=== PATIENT | female | born 1980 | race Caucasian/White ===

== ENCOUNTER 2022-05-24 09:45 | Emergency (ER) | payer BC, SELFPAY ==
[2022-05-24 09:57] VITALS: BP 138/90; PULSE 118; RESP 14; TEMP 36.7; O2SAT 100; BMI 17.0
--- NOTE | 2022-05-24 10:35 | CRLHL7_ITS ---
For Patients: As a result of the Century Cures Act, medical imaging exams and procedure reports are released immediately into your electronic medical record. You may view this report before your referring provider. If you have questions, please contact your health care provider. INDICATION: Low back pain with right lower extremity radiculopathy TECHNIQUE: Four views of the lumbar spine were obtained including oblique views as well as AP and lateral views. COMPARISON: None FINDINGS: No fracture, significant subluxation or acute abnormality is evident. No appreciable spondylosis changes are seen as the vertebral body heights and intervertebral disc space heights are well maintained. Minimal scoliotic curvature of the lumbar spine is noted convex right and likely is positional. IMPRESSION: Minimal scoliotic curvature of the lumbar spine is noted convex right without other abnormality as detailed above. Specifically, no etiology for patient`s right lower extremity radiculopathy is seen. MRI of the lumbar spine could be obtained for further assessment. Dictated by Roney Barker MD @ 05/24/2022 11:48:43 AM (Electronically Signed)
[2022-05-24 11:04] VITALS: BP 128/83; RESP 14; O2SAT 100
--- NOTE | 2022-05-24 11:30 | ED_ITS ---
HPI - General Adult General Time Seen by Provider: 11:30 Date Seen: 05/24/22 Chief complaint: Unspecified Complaint, Adult Stated complaint: Digestive trouble Time Seen by Provider: 05/24/22 10:14 Source: patient and old records reviewed Mode of arrival: ambulatory Limitations: no limitations History of Present Illness HPI narrative: Patient is a very pleasant 41-year-old female with history of low back pain who comes to the emergency room with worries about low back pain and recent weight loss. Patient had been talking to the nurse line and nurse line suggested she come in for evaluation. Patient is worried that on L5 disc problem may be causing some of her abdominal discomfort. Patient states that she has had low back pain for a couple of years after injury. She has never had any x-rays but had been seen by a chiropractor who would often do adjustments. She states she really has not had any improvement. She notes that she has occasional tingling going down from her buttock down to her leg and even into her heel. She states that this is especially worse after working. 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 She notes no loss of bowel or bladder control. Today on her way here she also fell down landing on her left arm. She states that she has pain into her left shoulder. She does not think her wrist was hurt and is able to move it without difficulty. Patient also notes that she has been experiencing soft stools lately. There is no blood in the stools. She states she tried an elimination diet and has found that white vinegar and things such as corn and dairy bother her greatly. She notes that sometime she has really significant pain especially in the lower abdomen and right lower quadrant after ingesting certain foods. She will then not have a bowel movement for 3 days but when she does it will be straight diarrhea. She does not think she develops any rash from any specific foods. She has never had a colonoscopy. No recent fever. She has not had any vomiting. In regards to her weight loss she estimates this to be about 11 lb since December. She notes that she had not been eating very healthy in was in taking high calorie foods. She switched back to healthy foods including adding protein shakes during the day. but continues to lose weight. Overall she does not feel well. Although she has no fever cough or congestion she notes that she has also been experiencing some right side weakness and has been feeling more foggy. A month ago she also had an episode of visual blurring. She has recently seen the neurologist through [facility] [employer] and she will be undergoing MRI per his order after head CT was felt to be within normal limits. The clinic did have her undergo CRP HIV hepatitis testing and that has all come back as negative. Patient is worried today that possibility of an L5 disc injury may have something to do with her weight loss. Related Data Home Medications Medication Instructions Recorded Confirmed No Known Home Medications 05/24/22 05/24/22 Allergies Allergy/AdvReac Type Severity Reaction Status Date / Time acetaminophen [From Tylenol] AdvReac Unknown Vomiting Verified 05/24/22 09:57 Review of Systems Status of ROS: Reports: 10 or more systems reviewed and unremarkable except as noted in History and below Const: Reports: change in weight and fatigue; Denies: fever or chills Eyes: Reports: blurry vision (One month ago) ENMT: Denies: throat pain, throat swelling or hoarseness Cardio: Reports: palpitations; Denies: chest pain, swelling of feet/ankles or shortness of breath with exertion Resp: Denies: shortness of breath or cough GI: Reports: abdominal pain; Denies: nausea, vomiting or blood in stool : Denies: painful urination or urinary frequency Musculo: Reports: back pain Neuro: Reports: weakness in extremities Endo: Reports: fatigue Allergy/Immuno: Denies: throat swelling PFSH PFSH Social History Smoking Status: Former smoker How often do you have a drink containing alcohol: never AUDIT-C Alcohol total score: 0 Non-prescribed substance use: denies use Exam Narrative: Exam Narrative: Patient is alert and oriented. She does look fatigued in appearance but nontoxic. Her eyes are clear EOM is full. Heart with a rapid rate but regular rhythm. Lungs are clear in all lung alarcon abdomen is soft and flat. Palpation of the lumbar spine buttocks without pain. Straight leg raise is negative. Internal external rotation of the leg negative. She has full strength and motor on her lower extremities. Const: Vital Signs, click to edit/add: Vital Signs - 24 hr 05/24/22 09:57 05/24/22 11:04 Temperature 98.0 F Pulse Rate [Pulse Oximeter] 118 H Respiratory Rate 14 14 Blood Pressure [Le ft Upper Arm] 138/90 H 128/83 Pulse Oximetry 100 100 Oxygen Delivery Me thod Room Air Documenting provider has reviewed patient's vital signs: yes Course Course Hospital Course: Patient does agree to plain x-rays of the lumbar spine. Also agrees to blood draw today. Vital Signs Vital signs: Initial Vital Signs Temperature 98.0 F 05/24/22 09:57 Temperature Source Temporal Artery Scan 05/24/22 09:57 Pulse Rate 118 H 05/24/22 09:57 Pulse Rhythm 05/24/22 09:57 Respiratory Rate 14 05/24/22 09:57 Blood Pressure 138/90 H 05/24/22 09:57 Blood Pressure Mean 106 05/24/22 09:57 Blood Pressure Position Supine 05/24/22 09:57 Pulse Oximetry 100 05/24/22 09:57 Oxygen Delivery Method 05/24/22 09:57 Vital Signs Temperature 98.0 F 05/24/22 09:57 Pulse Rate 118 H 05/24/22 09:57 Respiratory Rate 14 05/24/22 09:57 Blood Pressure 138/90 H 05/24/22 09:57 Pulse Oximetry 100 05/24/22 09:57 Oxygen Delivery Method 05/24/22 09:57 Temperature 98.0 F 05/24/22 09:57 Pulse Rate 118 H 05/24/22 09:57 Respiratory Rate 14 05/24/22 11:04 Blood Pressure 128/83 05/24/22 11:04 Pulse Oximetry 100 05/24/22 11:04 Oxygen Delivery Method 05/24/22 09:57 Medical Decision Making [facility] Narrative Medical decision making narrative: 1. Vitamin-D deficiency-patient's levels 22. Will have her start replacement with 800 IU daily. Would recommend also taking magnesium 400 mg daily while using vitamin-D. Her magnesium level normal at 2.1. 2. Weight loss-recommend GI consult. Patient may need colonoscopy. Celiac panel done here today. Continue to eat healthy and increased protein shakes. 3. Neurological complaints-patient already has MRI of the brain pending with [facility]. 4. Disposition-patient is discharged home. I will call her with results of her labs today. She is aware that some of these labs will not be return to her. Note heart rate improved to 100 while resting. This was also noted as an issue on her recent [facility] visit. EKG very reassuring with no evidence of ST or T- wave changes. TSH at [facility] within normal limits as was a CRP HIV and hepatitis C. Currently pending are thiamin and celiac panel. B12 normal today. Medical Records Medical records reviewed: Yes I reviewed the patient's medical records Medical records narrative: Able to obtain records from primary care provider and Neurology at [facility]. Lab Data Lab results reviewed: Yes I reviewed the patient's lab results Labs: Lab Results 05/24/22 05/24/22 05/24/22 Range/Units 11:33 11:33 11:33 WBC 6.58 (4.50-11.00) K/uL RBC 4.84 (4.00-5.20) m/uL Hgb 13.9 (12.0-16.0) gm/dL Hct 41.7 (33.0-51.0) % MCV 86 (80-100) fL MCH 29 (26-34) pg MCHC 33 (32-36) gm/dL RDW Coeff of Jerson 12.7 (11.5-15.5) % Plt Count 256 (140-440) K/uL Neut % (Auto) 82.3 H (42.0-72.0) % Lymph % (Auto) 10.8 L (20-44) % [place] % (Auto) 6.1 (0.0-11.0) % Eos % (Auto) 0.2 (0.0-7.0) % Baso % (Auto) 0.3 (0.0-3.0) % Neut # (Auto) 5.40 (1.7-7.0) K/uL Lymph # (Auto) 0.70 L (0.90-2.90) K/uL [place] # (Auto) 0.40 (0.00-0.90) K/UL Eos # (Auto) 0.01 (0.00-0.50) K/uL Baso # (Auto) 0.02 (0.00-0.30) K/uL Sodium 139 (135-149) mmol/L Potassium 3.7 (3.6-5.1) mmol/L Chloride 104 (96-114) mmol/L Carbon Dioxide 27 (20-32) mmol/L BUN 9 (5-24) mg/dL Creatinine 0.6 (0.5-1.5) mg/dL Estimated Creat Clear 100.58 Estimated GFR 115 ml/min Glucose 97 (60-115) mg/dL Calcium 9.7 (8.4-10.6) mg/dL Magnesium 2.1 (1.5-2.6) mg/dL Total Bilirubin 0.8 (0.1-1.5) mg/dL AST 23 (12-35) U/L ALT 16 (4-35) U/L Alkaline Phosphatase 54 (40-150) U/L Total Protein 8.5 H (6.0-8.3) g/dL Albumin 5.1 H (3.3-5.0) g/dL Vitamin B12 622 (243-894) pg/mL 25-OH Vitamin D Total 22 L (30-80) ng/mL Imaging Data Lumbar spine x-ray: Attestation: I have reviewed the pertinent imaging results. My impression: No noted fractures. No evidence of decreased space at L5-S1. Radiologist's impression: No fracture, significant subluxation or acute abnormality is evident. No appreciable spondylosis changes are seen as the vertebral body heights and intervertebral disc space heights are well maintained. Minimal scoliotic curvature of the lumbar spine is noted convex right and likely is positional. IMPRESSION: Minimal scoliotic curvature of the lumbar spine is noted convex right without other abnormality as detailed above. Specifically, no etiology for patient`s right lower extremity radiculopathy is seen. MRI of the lumbar spine could be obtained for further assessment. ECG Data Attestation: I personally reviewed and interpreted this ECG as follows: Interpretation: Sinus tachycardia at a rate of [address] or T-wave changes. Discharge Plan Discharge Clinical Impression: Low back pain, Recent weight loss Patient Disposition: Home, Self-Care Condition: Unchanged Additional Instructions: Await my phone call for further results. Follow-up with [facility] for recheck, GI consult. Return to the ER as needed. Prescriptions: No Action No Known Home Medications Follow Up/Referrals: Judie Sandoval PA-C [Primary Care Provider] - Stand Alone Forms: [employer] Info Instructions
[2022-05-24 11:43] LABS: Basophils Absolute Auto 0.02 K/uL (0.00-0.30); Basophils Percent Auto 0.3 % (0.0-3.0); Eosinophils Absolute Auto 0.01 K/uL (0.00-0.50); Eosinophils Percent Auto 0.2 % (0.0-7.0); Hematocrit 41.7 % (33.0-51.0); Hemoglobin* 13.9 gm/dL (12.0-16.0); Immature Granulocytes Abs Auto 0.02 K/uL (0.00-0.30); Immature Granulocytes Pct Auto 0.3 %; Lymphocytes Percent Auto 10.8 % (20-44); Mean Corpuscular HGB Conc 33 gm/dL (32-36); Mean Corpuscular Hemoglobin 29 pg (26-34); Mean Corpuscular Volume 86 fL (80-100); Monocytes Percent Auto 6.1 % (0.0-11.0); Neutrophils Percent Auto 82.3 % (42.0-72.0); Platelet Count* 256 K/uL (140-440); RDW Coefficient of Variation % 12.7 % (11.5-15.5); Red Blood Count 4.84 m/uL (4.00-5.20); White Blood Count* 6.58 K/uL (4.50-11.00)
[2022-05-24 11:50] LABS: Slide Review Reflex No
[2022-05-24 11:57] LABS: Albumin* 5.1 g/dL (3.3-5.0); Chloride* 104 mmol/L (96-114)
[2022-05-24 11:58] LABS: Potassium* 3.7 mmol/L (3.6-5.1); Sodium* 139 mmol/L (135-149)
[2022-05-24 12:00] LABS: Alkaline Phosphatase* 54 U/L (40-150); Aspartate Amino Transferase* 23 U/L (12-35); Bilirubin Total* 0.8 mg/dL (0.1-1.5); Carbon Dioxide* 27 mmol/L (20-32); Creatinine* 0.6 mg/dL (0.5-1.5); Est. Creatinine Clearance* 100.58; Estimated Glomerular Filt Rate 115 ml/min; Total Protein* 8.5 g/dL (6.0-8.3)
[2022-05-24 12:01] LABS: Alanine Aminotransferase* 16 U/L (4-35); Blood Urea Nitrogen* 9 mg/dL (5-24); Calcium* 9.7 mg/dL (8.4-10.6); Glucose* 97 mg/dL (60-115); Magnesium* 2.1 mg/dL (1.5-2.6)
[2022-05-24 12:20] LABS: Vitamin D 25 Hydroxy* 22 ng/mL (30-80)
[2022-05-24 12:50] LABS: Vitamin B12* 622 pg/mL (243-894)
[2022-05-29 13:04] LABS: Vitamin B1, Whole Blood 137 nmol/L (70-180)
== END 2022-05-24 13:09 | disposition home or self-care (01) ==
PROVIDERS: Emergency Provider Family Medicine; PCP Student in an Organized Health Care Education/Training Program
DX: M54.59 Other low back pain (principal)
CPT/HCPCS: 36415; 72110; 80053; 82306; 82607; 83516; 83735; 84425; 85025; 93005; 99284

== ENCOUNTER 2022-06-27 01:05 | Outpatient (CLI) | payer BC, SELFPAY | END 2022-06-27 01:06 | disposition home or self-care (01) | LOC: AMB 06-30 01:36 | PROVIDERS: PCP Student in an Organized Health Care Education/Training Program; Visit Provider Family Medicine | DX: R51.9 Headache, unspecified (principal) | CPT/HCPCS: A0425; A0429 ==

== ENCOUNTER 2022-06-27 01:20 | Emergency (ER) | payer BC, SELFPAY ==
[2022-06-27 01:32] VITALS: BP 149/88; PULSE 99; RESP 16; O2SAT 100
--- NOTE | 2022-06-27 02:06 | ED.GENADULT ---
HPI - General Adult General Chief complaint: Headache/Migraine Stated complaint: Headache, nausea, fever Time Seen by Provider: 06/27/22 01:24 History of Present Illness HPI narrative: Patient is a 41-year-old 36 hours of headache. Today she developed nausea and vomiting as well. She underwent a lumbar puncture three days ago as part of an evaluation for multiple sclerosis. She does not have the results back yet. She has had recent MRI of her brain and cervical spine that do show some suspicious lesions. This has left her with some weakness on the right side of her body. None of her neurologic deficits have changed over the past 48 hours. She denies fevers or chills. She has some tenderness at the side of her lumbar puncture but no warmth or redness. No drainage. She took some Aleve which did help a little. Her headache is 90% better when she lies down but it is disabling when she is upright. Related Data Previous Rx's Medication Instructions Recorded ondansetron 8 mg disintegrating 8 mg PO Q8H PRN nausea and 06/27/22 tablet vomiting #15 tabs Allergies Allergy/AdvReac Type Severity Reaction Status Date / Time acetaminophen [From Tylenol] AdvReac Unknown Vomiting Verified 05/24/22 09:57 Review of Systems Narrative: Review of systems is outlined above otherwise noted to be negative. [facility] Social History Smoking Status: Former smoker How often do you have a drink containing alcohol: never AUDIT-C Alcohol total score: 0 Non-prescribed substance use: denies use Exam Narrative: Exam Narrative: Vitals noted. She is very thin and frail appearing. HEENT: Conjunctiva clear. Tympanic membranes are pearly white bilaterally. Posterior pharynx is clear without erythema or exudate. Neck is supple without adenopathy, thyromegaly, carotid bruit. No nuchal rigidity. Lungs: Clear to auscultation in all alarcon. No wheezes, rales, rhonchi. Heart: Regular rate and rhythm without murmur. Abdomen: Soft and nontender. No guarding, rigidity, rebound. Bowel sounds are normal. No palpable masses. Extremities: No cyanosis or edema. Good distal pulses. Skin: No abnormalities noted of the exposed skin. Lumbar puncture site looks normal. Neurologic: Awake, alert, fully oriented. She has some minor add weakness involving her right leg and right arm. Reflexes are symmetric. She has a few fasciculations but no sensory loss. She does have some visual changes of the right eye. Const: Vital Signs, click to edit/add: Vital Signs - 24 hr 06/27/22 01:32 06/27/22 03:23 Temperature 98.0 F Pulse Rate [Left P ulse Oximeter] 99 Respiratory Rate 16 Blood Pressure [Ri ght Upper Arm] 149/88 H Pulse Oximetry 100 Oxygen Delivery Me thod Room Air Course Course Hospital Course: Patient was seen and examined. Labs are ordered. She is given lactated Ringer's 1 L bolus, Zofran 4 mg IV, Toradol 30 mg IV. With this her nausea resolved and her headache improved. A 2 L of lactated Ringer's is given with further improvement in her headache. She is able to get up and walk to the bathroom and did have some recurrence of headache when she was upright. Reevaluation(s) Reevaluation #1: CBC, BMP medium are all normal. We discussed blood patch but she is a Islam and feels that this would violate biblical law even though it is her own blood being used. We discussed the typical time course of a spinal headache. Vital Signs Vital signs: Initial Vital Signs Temperature Source Temporal Artery Scan 06/27/22 01:32 Pulse Rate 99 06/27/22 01:32 Respiratory Rate 16 06/27/22 01:32 Blood Pressure 149/88 H 06/27/22 01:32 Blood Pressure Mean 108 06/27/22 01:32 Blood Pressure Position Sitting 06/27/22 01:32 Pulse Oximetry 100 06/27/22 01:32 Oxygen Delivery Method 06/27/22 01:32 Vital Signs Pulse Rate 99 06/27/22 01:32 Respiratory Rate 16 06/27/22 01:32 Blood Pressure 149/88 H 06/27/22 01:32 Pulse Oximetry 100 06/27/22 01:32 Oxygen Delivery Method 06/27/22 01:32 Temperature 98.0 F 06/27/22 03:23 Pulse Rate 99 06/27/22 01:32 Respiratory Rate 16 06/27/22 01:32 Blood Pressure 149/88 H 06/27/22 01:32 Pulse Oximetry 100 06/27/22 01:32 Oxygen Delivery Method 06/27/22 01:32 Medical Decision Making Lab Data Labs: Lab Results 06/27/22 06/27/22 Range/Units 02:16 02:16 WBC 5.72 (4.50-11.00) K/uL RBC 4.26 (4.00-5.20) m/uL Hgb 12.5 (12.0-16.0) gm/dL Hct 36.2 (33.0-51.0) % MCV 85 (80-100) fL MCH 29 (26-34) pg MCHC 35 (32-36) gm/dL RDW Coeff of Jerson 12.3 (11.5-15.5) % Plt Count 188 (140-440) K/uL Neut % (Auto) 86.8 H (42.0-72.0) % Lymph % (Auto) 7.2 L (20-44) % [place] % (Auto) 5.4 (0.0-11.0) % Eos % (Auto) 0.2 (0.0-7.0) % Baso % (Auto) 0.2 (0.0-3.0) % Neut # (Auto) 5.00 (1.7-7.0) K/uL Lymph # (Auto) 0.40 L (0.90-2.90) K/uL [place] # (Auto) 0.30 (0.00-0.90) K/UL Eos # (Auto) 0.01 (0.00-0.50) K/uL Baso # (Auto) 0.01 (0.00-0.30) K/uL Sodium 135 (135-149) mmol/L Potassium 3.5 L (3.6-5.1) mmol/L Chloride 101 (96-114) mmol/L Carbon Dioxide 27 (20-32) mmol/L BUN 8 (5-24) mg/dL Creatinine 0.5 (0.5-1.5) mg/dL Estimated GFR 120 ml/min Glucose 123 H (60-115) mg/dL Calcium 8.8 (8.4-10.6) mg/dL Magnesium 1.9 (1.5-2.6) mg/dL Discharge Plan Discharge Clinical Impression: Spinal headache Patient Disposition: Home, Self-Care Condition: Improved Additional Instructions: Rest, Aleve 2 pills twice a day, Zofran every 8 hours as needed for nausea. Push fluids and caffeine. Contact your Neurologist if the headache doesn't resolve over the next 3-5 days. Prescriptions: New ondansetron 8 mg tablet,disintegrating 8 mg PO Q8H PRN (Reason: nausea and vomiting) Qty: 15 0RF Follow Up/Referrals: Judie Sandoval PA-C [Primary Care Provider] - Stand Alone Forms: [employer] Info Instructions
[2022-06-27 02:15] VITALS: BP 124/86; PULSE 85; RESP 16; O2SAT 100
[2022-06-27] MEDS: LACTATED RINGERS 1000 ML 1,000 ML IV ×2 (02:19→03:19)
[2022-06-27] MEDS: ONDANSETRON 2 MG/ML inj 4 MG IVP (02:19)
[2022-06-27] MEDS: KETOROLAC 30 MG/ML inj IVP (02:19)
[2022-06-27 02:22] LABS: Basophils Absolute Auto 0.01 K/uL (0.00-0.30); Basophils Percent Auto 0.2 % (0.0-3.0); Eosinophils Absolute Auto 0.01 K/uL (0.00-0.50); Eosinophils Percent Auto 0.2 % (0.0-7.0); Hematocrit 36.2 % (33.0-51.0); Hemoglobin* 12.5 gm/dL (12.0-16.0); Immature Granulocytes Abs Auto 0.01 K/uL (0.00-0.30); Immature Granulocytes Pct Auto 0.2 %; Lymphocytes Percent Auto 7.2 % (20-44); Mean Corpuscular HGB Conc 35 gm/dL (32-36); Mean Corpuscular Hemoglobin 29 pg (26-34); Mean Corpuscular Volume 85 fL (80-100); Monocytes Percent Auto 5.4 % (0.0-11.0); Neutrophils Percent Auto 86.8 % (42.0-72.0); Platelet Count* 188 K/uL (140-440); RDW Coefficient of Variation % 12.3 % (11.5-15.5); Red Blood Count 4.26 m/uL (4.00-5.20); White Blood Count* 5.72 K/uL (4.50-11.00)
[2022-06-27 02:23] LABS: Slide Review Reflex No
[2022-06-27 02:36] LABS: Chloride* 101 mmol/L (96-114); Potassium* 3.5 mmol/L (3.6-5.1); Sodium* 135 mmol/L (135-149)
[2022-06-27 02:39] LABS: Blood Urea Nitrogen* 8 mg/dL (5-24); Carbon Dioxide* 27 mmol/L (20-32); Creatinine* 0.5 mg/dL (0.5-1.5); Estimated Glomerular Filt Rate 120 ml/min; Glucose* 123 mg/dL (60-115)
[2022-06-27 02:40] LABS: Calcium* 8.8 mg/dL (8.4-10.6); Magnesium* 1.9 mg/dL (1.5-2.6)
[2022-06-27 03:20] VITALS: BP 109/71; PULSE 89; RESP 16; O2SAT 100
[2022-06-27 03:23] VITALS: TEMP 36.7
[2022-06-27 04:00] VITALS: BP 114/72; PULSE 77; RESP 16; O2SAT 100
== END 2022-06-27 04:45 | disposition home or self-care (01) ==
PROVIDERS: Emergency Provider Family Medicine; PCP Student in an Organized Health Care Education/Training Program
DX: G97.1 Other reaction to spinal and lumbar puncture (principal)
CPT/HCPCS: 36415; 80048; 83735; 85025; 96374; 96375; 99283; 99284; J1885; J2405; J7120

== ENCOUNTER 2023-01-13 14:17 | Outpatient (CLI) | payer BC, SELFPAY ==
--- NOTE | 2023-01-13 14:00 | CRLHL7_ITS ---
For Patients: As a result of the Century Cures Act, medical imaging exams and procedure reports are released immediately into your electronic medical record. You may view this report before your referring provider. If you have questions, please contact your health care provider. INDICATION: Multiple sclerosis follow-up. TECHNIQUE: Brain MRI with contrast, demyelination protocol. The following sequences were obtained: Axial DWI and ADC mapping sequences. Sagittal FLAIR and T1 weighted sequences. Axial FLAIR and T2 weighted sequences. Axial and coronal T1 postcontrast sequences. 15 cc of Dotarem gadolinium based contrast agent administered. COMPARISON: : None. FINDINGS: Multiple T2 hyperintense lesions within the supratentorial and infratentorial brain are re-demonstrated. Supratentorial lesions are distributed relatively evenly within the periventricular, intermediate deep and juxta cortical white matter. Few of the larger lesions are oval in morphology. Overall burden of T2 signal change is mild within the supratentorial brain. There is no substantial parenchymal volume loss. There is no atrophy of the corpus callosum. No evidence of acute ischemia or intracranial hemorrhage. No hydrocephalus or extra-axial collections. Pituitary gland, parasellar structures and optic chiasm are normal. All the major intracranial vascular structures demonstrate normal flow-related signal voids. The orbital contents are normal. No calvarial or skullbase marrow signal abnormality. No obstructive sinus disease. IMPRESSION: 1. Mild supratentorial white matter signal changes, nonspecific but could reflect chronic demyelination in the appropriate clinical setting. 2. No enhancing white matter lesions to suggest the presence of an active demyelinating plaque. 3. No significant T1 hypointense lesion load. 4. No significant parenchymal volume loss. Dictated by Isidoro Little MD @ 01/14/2023 9:21:32 AM ----- ADDENDUM ----- Comparison addendum: Comparison is made to the brain MRI from 06/16/2022. Mild burden of FLAIR hyperintense signal change within the supratentorial white matter, stable compared to the prior exam. This includes reference lesions within the right frontal juxtacortical white matter, the left frontal garcia radiata, and the anterior corpus callosum body. No new enhancing lesions. Stable punctate focus of enhancement within the right posterior subinsular region, which may be vascular. Dictated by Isidoro Little MD @ Jan 16 2023 10:01AM (Electronically Signed)
--- NOTE | 2023-01-13 15:00 | CRLHL7_ITS ---
For Patients: As a result of the Cures Act, medical imaging exams and procedure reports are released immediately into your electronic medical record. You may view this report before your referring provider. If you have questions, please contact your health care provider. INDICATION: Demyelination. TECHNIQUE: Cervical spine MRI with contrast. MS protocol. The following sequences were obtained: Sagittal T1, T2 weighted and proton density sequences. Axial gradient and T2-weighted sequences. Axial and sagittal T1 weighted post contrast sequences. 15 cc of Dotarem gadolinium based intravenous contrast agent was used. COMPARISON: None. FINDINGS: Cervical cord signal is normal. No evidence of active or chronic demyelinating plaques. No cord atrophy. Normal cervical alignment. No fracture or aggressive marrow signal abnormality. Visualized soft tissue structures of the neck are normal in appearance. Findings at individual levels as follows: Craniocervical junction: Alignment is maintained. C2-C3: No substantial spinal canal or neural foraminal stenosis. C3-C4: No substantial spinal canal or neural foraminal stenosis. C4-C5: No substantial spinal canal or neural foraminal stenosis. C5-C6: No substantial spinal canal or neural foraminal stenosis. C6-C7: No substantial spinal canal or neural foraminal stenosis. C7-T1: No substantial spinal canal or neural foraminal stenosis. Imaged upper thoracic levels: No substantial spinal canal or neural foraminal stenosis. IMPRESSION: 1. No evidence of active or chronic demyelination within the cervical cord. 2. No spinal canal/neural foraminal stenosis or impingement of neural structures at any cervical level. Dictated by Isidoro Little MD @ 01/14/2023 9:29:46 AM ----- ADDENDUM ----- Comparison addendum: Comparison is made to cervical spine MRI from 05/26/2022. No change compared to that prior MRI. No cord signal abnormality is visible on the prior or current exam. Dictated by Isidoro Little MD @ Jan 16 2023 10:06AM (Electronically Signed)
--- NOTE | 2023-01-13 16:00 | CRLHL7_ITS ---
For Patients: As a result of the Century Cures Act, medical imaging exams and procedure reports are released immediately into your electronic medical record. You may view this report before your referring provider. If you have questions, please contact your health care provider. INDICATION: Multiple sclerosis. TECHNIQUE: Lumbar spine MRI with contrast. The following sequences were obtained: Sagittal T1, T2 weighted and T2 weighted STIR sequences. Axial T1 and T2 weighted sequences. Axial and Sagittal T1 weighted post-contrast sequences. 15 cc of Dotarem gadolinium based contrast agent was administered. COMPARISON: None. FINDINGS: Five lumbar type vertebral bodies, with the last fully formed disc space designated as L5-S1. Normal lumbar alignment. No recent compression fracture or aggressive marrow replacing process. Lower cord/conus signal is normal. The conus terminates at a normal location. No intraspinal mass or pathologic intradural enhancement. No extraspinal soft tissue abnormalities. Discs/Endplates: Normal lower thoracic and lumbar disc height and signal. Findings at individual levels as follows: T11-12: No spinal canal or neural foraminal stenosis. T12-L1: No spinal canal or neural foraminal stenosis. L1-2: No spinal canal or neural foraminal stenosis. L2-3: No spinal canal or neural foraminal stenosis. L3-4: No spinal canal or neural foraminal stenosis. L4-5: No spinal canal or neural foraminal stenosis. L5-S1: No spinal canal or neural foraminal stenosis. Imaged SI joints: Within normal limits. Imaged sacrum: Within normal limits. IMPRESSION: 1. No evidence of active or chronic demyelination within the lower cord/conus. The cauda equina nerve roots are also normal in appearance. 2. No spinal canal/neural foraminal stenosis or impingement of neural structures at any lumbar level. Dictated by Isidoro Little MD @ 01/14/2023 9:38:22 AM (Electronically Signed)
== END 2023-01-13 14:18 | disposition home or self-care (01) ==
LOC: MRI 14:17
PROVIDERS: PCP Student in an Organized Health Care Education/Training Program; Visit Provider Psychiatry & Neurology Neurology
DX: G35 Multiple sclerosis (principal); R29.898 Other symptoms and signs involving the musculoskeletal system
CPT/HCPCS: 70553; 72156; 72158; A9575

== ENCOUNTER 2023-01-19 09:00 | Outpatient (RCR) | payer BC, SELFPAY | END 2023-03-16 08:15 | disposition home or self-care (01) | PROVIDERS: PCP Student in an Organized Health Care Education/Training Program; Visit Provider Psychiatry & Neurology Neurology | DX: M79.604 Pain in right leg (principal); M25.551 Pain in right hip; G35 Multiple sclerosis; R90.89 Other abnormal findings on diagnostic imaging of central nervous system; M54.42 Lumbago with sciatica, left side; Z79.899 Other long term (current) drug therapy; E55.9 Vitamin D deficiency, unspecified; E53.8 Deficiency of other specified B group vitamins; Z51.89 Encounter for other specified aftercare | CPT/HCPCS: 97110; 97140; 97161 ==

== ENCOUNTER 2023-04-21 07:30 | Outpatient (RCR) | payer BC, SELFPAY | END 2023-06-29 15:12 | disposition home or self-care (01) | PROVIDERS: PCP Student in an Organized Health Care Education/Training Program; Visit Provider Physician Assistant Surgical | DX: M75.22 Bicipital tendinitis, left shoulder (principal); Z51.89 Encounter for other specified aftercare | CPT/HCPCS: 97110; 97140; 97162 ==

== ENCOUNTER 2023-07-02 07:08 | Outpatient (CLI) | payer BC, SELFPAY ==
--- OUTSIDE RECORDS SUMMARY | 2023-07-02 07:11 | XMS_ITS | Encounter Summary ---
Author Name Unknown Organization [facility] Address [address] [place] [address] Care Team Providers Care Sampler And Test Preparer Name Role Phone Clinic, [facility] Unavailable Unavailable Jac Guevara MD Unavailable [phone] Reason for Referral * Consultation (Routine) - Pending Review Specialty Diagnoses / Procedures Referred By Navya woodward Referred To Contact Orthopedics Diagnoses Right leg pain Patricia Fernández MD [address] [place] [phone] , Not Listed no address Referral ID Status Reason Start Date Expiration Date Visits Requested Visits Authorized [id number] Pending Review Specialty Services Required 01/30/2023 1 1 Comments Referral [facility] Pt with possible RRMS but with ongoing right leg weakness/pain with hx of hip/back pain with normal MRI L spine. Please eval for possible piriformis syndrome or other cause Reason for Visit * Reason Comments Multiple Sclerosis Encounter Details Date Type Department Care Team (Late st Contact Info) Description 01/30/2023 11:00 AM CDT Office Visit [facility] - [address] [phone] Patricia Fernández MD [address] [place] [address] [phone] Abnormal brain MRI (Primary Dx); Right leg pain Social History Tobacco Use Types Packs/Day Years Used Date Smoking Tobacco: Never Smokeless Tobacco: Never Alcohol Use Standard Drinks/Week Comments Never 0 (1 standard drink = 0.6 oz pur e alcohol) Sex and Gender Information Value Date Recorded Sex Assigned at Not on file Gender Identity Female 06/04/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 Sexual Orientation Straight 06/04/2022 3: 40 PM PRESS WORKER HELPER documented as of this encounter Last Filed Vital Signs Vital Sign Reading Time Taken Comments Blood Pressure 118/85 01/30/2023 11:08 AM CDT Pulse 86 01/30/2023 11:08 AM CDT Temperature - - Respiratory Rate - - Oxygen Saturation - - Inhaled Oxygen Concentration - - Weight 51.7 kg (114 lb) 01/30/2023 11:08 AM CDT Height 177.8 cm (5' 10) 01/30/2023 11:08 AM CDT Body Mass Index 16.36 01/30/2023 11:08 AM CDT documented in this encounter Patient Instructions * Patient Instructions* Patricia Fernández MD - 01/30/2023 11:00 AM CDT Consider pain/ortho clinic - piriformis syndrome Consider starting baclofen as discussed F/u in 4 months documented in this encounter Progress Notes * Patricia Fernández MD - 01/30/2023 11:00 AM CDT In the interval since her last visit, she reports did start PT for right leg. She reports did get updated MRi B/C and L spine at [facility]. Updated MRi B/C stable and MRi L spine normal. She reports right leg symptoms intermittent. She reports gets pain in right calf with radiation into upper leg. She reports that right leg will go numb after activity with tingling in calf and stiffness. Describes muscle cramp as well with tightness sensations then will radiate into posterior thigh. RIght leg feels weaker all the time but worsens with activity. 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 Reports now is gaining versus losing. Never started baclofen but has picked up from the drug store. Has not been working due to leg symptoms. Chronic Symptoms Memory - foggy feeling, trouble concentrating. Mood - No concerns Vision - Intermittent right eye blurriness. Weakness/Mobility - Feels right sided weakness (present for years). Pain/Abnormal Sensations - Right leg numbness/tingling. Muscle cramping in right leg. Hx of tingling on her face/head on the right side. Fatigue/Energy - Does take more naps in the afternoon. Some generalized fatigue. Bladder - Incomplete emptying (takes extra time/double voiding to empty bladder) - feels has been present for years and stable. Bowel - No concerns Other - Symptoms get worse with heat (I.e hot showers) Hx of headaches/migraines - Triggers driving long distances, over exertion, with certain clothing. Unilateral with associated nausea and neck pain. Doesn't take anything for migraines. Treats her headaches with rest. Feels well controlled with managing triggers. Low back pain - Had back injury while cleaning. Sees chiropractor who diagnosed her with a slipped L5 disc. Has had XR of low back but no other imaging. Unintentional weight loss - following with PCP. Improved with avoiding gluten. ROSA EVENTS IN DISEASE HISTORY Around age 22 - Onset of gradual right sided weakness, altered sensation and difficulties with perception on the right. Often intermittent. Summer 2021 - Started had unintentional weight loss. 04/2022 - Onset of intermittent tingling on the right side of her face that lasted 24 hours. Also had onset of right eye vision changes (blurring) and altered sensation around the eye. Vision changesare constant but do fluctuate in intensity. Also with generalized weakness and muscle cramping in her right lower extremity. Evaluated by PCP for symptoms. Did obtain a CT scan and recommended a neurologist. 05/2022 - Evaluated by neurology, Dr. Bird, for her symptoms. He ordered MRIs that showed T2 changes concerning for demyelination on MRI Brain. MRI cervical without lesions. He ordered a CSF thatshowed a normal IgG index and 0 oligoclonal bands. He referred her to a MS specialist. 05/2022 - Seen at [facility] ER for muscle cramping in her right leg. Treated symptomatically and discharged. Records are not available for personal review. Per patient, was not admitted. 06/2022 - Saw Dr. Bird and work up concerning for MS. Including MRI B with one enhancing lesion.MRI C spine normal. CSF analysis with 0 oligoclonal bands and a normal IgG index. He referred to her be evaluated by an MS specialist. 06/2022 - Seen in the ER for ongoing headache 1 week after her spinal tap. Offered blood patch but patient declined. Was given Zofran but reports did not take. LABS CSF - 06/23/22 - Protein 29, WBC 1, RBC 0, Glucose 58, Oligoclonal bands 0, IgG index wnl 09/26/22 - [facility] - Vit D 33.6. Lyme neg. 07/04/22 - Lyme neg. Vit B12 648. Vit D 31.5. DENA Comp Panel wnl. PHILIPPE 44. DENA IFA neg. 05/20/22 - CRP wnl, HIV negative, TSH wnl, A1c wnl 04/28/22 - CBC w/diff wnl, ESR wnl, Comp with alk phos 46 JCV Hx 07/04/22 - JCV Negative 0.21 (H), Indeterminate. IMAGING 01/13/2023 - MRI brain, cervical, lumbar - [facility] - reviewed reports, MRi B/C stable compared to06/16/2022 and 05/26/22 respectively (MRI brain with no new lesions and right parietal lesion continues to enhance and concern for possible vascular cause) . MRI L spine normal 12/30/22 - [facility] MRI Facial/Orbits wo lidia - No comparison - Normal nonenhanced MRI of the orbits. MRI Thoracic wo lidia - No comparison - Normal thoracic spinal cord and conus medullaris. Subtle thoracic spinal curvature, without significant spondylosis or spinal stenosis. 06/16/22 MRI Brain 1. Stable multiple foci of T2 FLAIR hyperintensity throughout the supratentorial white matter concerning for demyelinating plaques. 2. Abnormal enhancement associated with a lesion involving the right internal capsule, worrisome for active demyelination. 05/26/22 MRI Brain w/o contrast 1. Multiple small scattered foci of T2 prolongation in the subcortical and pericallosal white matter as well as in the genu of the corpus callosum suggestive of demyelinating plaques and raising the possibility of multiple sclerosis in the appropriate clinical setting. 2. Normal parenchymal volume. 3. No T1 hypointense lesions. No infratentorial lesions. 4. No acute intracranial abnormality. MRI Cervical w/o contrast 1. Normal alignment. No acute osseous abnormality. 2. Minimal degenerative changes. 3. No significant spinal canal stenosis or neural foramen narrowing. 4. No abnormal spinal cord signal. MEDICATIONS Current Outpatient Medications: Medication Sig baclofen (LIORESAL) 10 mg oral tablet Take 1/2 tablet twice daily as needed for muscle cramping. cholecalciferol, vitamin D3, 25 mcg, 1000 unit, 25 mcg (1,000 unit) oral tablet Take 1 tablet (25 mcg) by mouth once daily. MAGNESIUM GLYCEROPHOSPHATE by Misc.(Non-Drug; Combo Route) route. 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 Cardiovascular: Bilateral lower extremities with no edema. Distal pulses palpable. Respiratory: Breathing non labored. NEUROLOGICAL EXAM BP 118/85 Pulse 86 Ht 5' 10 (1.778 m) Wt 51.7 kg (114 lb) BMI 16.36 kg/m?? Mental Status: Alert and orientated. Able to provide detailed medical history. Language is fluent. Speech without dysarthria. Cranial Nerves: VA 20/25 OU. Extraocular movements are full without nystagmus. Pupils are equal round and reactive to light. Face is symmetric with full sensation bilaterally. Tongue is midline and palate elevates symmetrically. Shoulder shrug is 5/5 bilaterally. Neck flexion does not illicit abnormal sensation. Motor: Muscle bulk and tone are normal. Strength to confrontational testing is 5/5 in bilaterally upper and lower extremities both proximally and distally. Reflexes: Biceps 2/2, Brachioradialis 2+/2+, Patella 2+/2+ (no crossed adductor seen) Coordination: No dysmetria on finger nose finger testing, rapid alternating movements of normal speed and rhythm, fast finger tapping of normal speed and amplitude. Sensation: No decreased sensation to pinprick, vibration or light touch in upper or lower extremities. Gait: Able to stand from seated position without assistance. Does not use walking aid. Able to walkon toes and heels. Able to walk in tandem without difficulty. 25 foot timed walk 4.86 seconds on 01/30/23 ASSESSMENT AND PLAN Natasha Milton is a 42 y.o. female with hx of recent unexplained weight loss now with ongoing eval for RRMS. She describes onset of right lower extremity cramping/tingling, right blurred vision and tingling on the right side of her face in 04/2022. The blurred vision and facial tingling improvedbut never resolved, but with worsening/ongoing right extremity cramping, especially after activity.She had a work up that showed T2 changes on a brain MRI with one right- sided lesion enhancing. MRI cervical was normal. CSF with no oligoclonal bands and a normal IgG index. Seen in clinic in 07/2022 and given diagnosis of RRMS given hx of other neurological symptoms and ongoing sensation of right leg symptoms (although active lesion on brain not in location to explain right leg symptoms). Now MRIorbit and MRI T spine without lesions in 12/2022. Further MRi imaging in 12/2022 with repeat MRI brain with ongoing enhancing right parietal lesion raising concern for vascular cause, C spine imaging normal. MRI L spine also normal. Reports ongoing/worsening right leg symptoms and with low back pain.Describes weakness/numbness of right leg. Exam reassuring in terms of right leg. We discussed the following: Abnormal MRI brain - Discussed updated MRis and now concern active lesion ongoing and raises concern for vascular vs demyelination as cause. Again, reviewed her symptoms from 04/2022 do not correlatewith a right sided enhancing lesion. Now harder to meet separation in space and timer criteria. Reviewed does have abnormal T2 lesions but normal cord imaging and CSF. Right leg symptoms still with no clear cause. Reviewed potential MS diagnosis. Still reports prefers natural options. JCV level 0.21 neg. If monoclonal antibody treatments are needed in the future would need to make sure patient is comfortable taking medication derived from cells (cannot have any medications derived from blood p roducts). Counseled On Exercise & Appropriate Physical Activity Vitamin D - Goal 60-80. Level 36 - encouraged supplement Symptoms Right lower extremity - progression of weakness/numbness/ possible Ms vs radiculopathy - MRI L spine normal. Discussed EMG but with normal MRi L spine will defer. . Has had PT. Encouraged baclofen. ENcouraged pain/ortho eval for potential piriformis syndrome- will discuss with local provider. Consider EMG in future Tongue tremor - seen on exam - will trend Vision - Intermittent sensation of right visual changes. MRI orbit reassuring. Has referral to see ophthalmology at time of last visit - overall much improved. Other Weight loss/ - Working with [facility] records requested. No specific diagnosis. Loose stools resolved. No specific celiac label but more gluten sensitive. May want to avoid oral MS meds if remains concern. 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 Headache - Does have chronic headaches that are well controlled with controlling triggers/life style. Does report increase in headaches since spinal tap. Unable to have blood patch due to jewish reasons (Jehovah witness). Deferred today. Follow up: 3-6 mo Time spent on the date of the encounter consisted of activities before, during and after the encounter as described above with a total time of: 53 min documented in this encounter Plan of Treatment Scheduled Referrals Name Type Priority Associated Diagnoses Orde r Schedule REFERRAL ORTHOPEDICS Referral Routine Right leg pain Ordered: 01/30/2023 documented as of this encounter Visit Diagnoses Diagnosis Abnormal brain MRI- Primary Nonspecific (abnormal) findings on radiological and other examination of skull and head Right leg pain Pain in limb documented in this encounter Care Teams Sampler And Test Preparer Relationship Specialty Start Date End Date Clinic, [facility] PCP - Primary Care Clinic 06/04/[address] [facility] [place] [id number] Internal Medicine 01/01/23 documented as of this encounter
--- OUTSIDE RECORDS SUMMARY | 2023-07-02 07:11 | XMS_ITS | Encounter Summary ---
Author Name Unknown Organization [facility] Address [address] [place] [id number] Care Team Providers Care Fire Extinguisher Mechanic Name Role Phone Clinic, [facility] Unavailable Unavailable Jac Guevara MD Unavailable [phone] Judie Sandoval Primary Care Provider Unavailab le Reason for Visit * Reason Comments Follow up Encounter Details Date Type Department Care Team (Late st Contact Info) Description 06/05/2023 9:00 AM ULTRASOUND SPECIALIST Virtual Visit [facility] [place] [address] [place] [address] Corrie Manley PA-C [address] [place], [place] [id number] Abnormal brain MRI (Primary Dx) Social History Tobacco Use Types Packs/Day Years Used Date Smoking Tobacco: Never Smokeless Tobacco: Never Alcohol Use Standard Drinks/Week Comments Never 0 (1 standard drink = 0.6 oz pur e alcohol) Sex and Gender Information Value Date Recorded Sex Assigned at Not on file Gender Identity Female 06/04/2022 3:40 PM ULTRASOUND SPECIALIST Sexual Orientation Straight 06/04/2022 3: 40 PM ULTRASOUND SPECIALIST documented as of this encounter Progress Notes * Anderson Solano MA - 06/05/2023 9:00 AM CST This is an interactive audiovisual (video) visit that was performed with the originating site at patient's home and the distant site at doctor's office. Verbal consent to participate in the visit wasobtained. I discussed with the patient the nature of our interactive video visit, that: 1. I would evaluate the patient and recommend diagnostics and treatments based on my assessment 2. Our sessions are not being recorded and that personal health information is protected 3. Our team would provide follow up care in person if/when the patient needs it. HPI: Natasha Milton is a 42 y.o. female who was last in clinic on 01/30/23. Today, reports has a cold right now but overall doing alright. Continues to have issues with the right side. Reports improvement if she is consistent with her PT. She does still have low back pain with sitting too long. Feels like that is making things worse. PT exercises help. Reports several issues with sensitivities and allergies. Has noticed that her symptoms get worse during times of stress and infection/allergies. Has been frustrated and discouraged about the slowness of improvement in her symptoms. Reports hasmore difficulty doing hobbies like drawing and cooking. Chronic Symptoms Memory - foggy feeling, trouble concentrating. Mood - No concerns. Some frustration with symptoms limiting hobbies/lifestyle. Vision - Intermittent right eye blurriness. Weakness/Mobility [...] a MS specialist. 05/2022 - Seen at [facility] ER for muscle cramping in her right [...] Zofran but reports did not take. LABS 09/26/22 - [facility] - Vit D 33.6. Lyme neg. 07/04/22 - Lyme neg. Vit B12 648. Vit D 31.5. DENA Comp Panel wnl. PHILIPPE 44. DENA IFA neg. 05/20/22 - CRP wnl, HIV negative, TSH wnl, A1c wnl 04/28/22 - CBC w/diff wnl, ESR wnl, Comp with alk phos 46 JCV Hx 07/04/22 - JCV Negative 0.21 (H), Indeterminate. 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 Exam below from previous clinic visit. GENERAL EXAM General: Patient in no acute distress. Cardiovascular: Bilateral lower extremities with no edema. Distal pulses palpable. Respiratory: Breathing non labored. Formal exam deferred today due to video visit. Exam below from previous clinic visit. NEUROLOGICAL EXAM There were no vitals taken for this visit. Mental Status: Alert and orientated. Able to [...] a 42 y.o. female with hx of unexplained weight loss and ongoing eval for RRMS.She describes onset of right lower extremity cramping/tingling, right blurred vision and tingling on the right side of her face in 04/2022. The blurred vision and facial tingling improved but never re solved, but with worsening/ongoing right extremity cramping, especially after activity. She had a work up that showed T2 changes on a brain MRI with one right-sided lesion enhancing. MRI cervical wasnormal. CSF with no oligoclonal bands and a normal IgG index. Seen in clinic in 07/2022 and given diagnosis of RRMS given hx of other neurological symptoms and ongoing sensation of right leg symptoms (although active lesion on brain not in location to explain right leg symptoms). MRI orbit and MRI Tspine without lesions in 12/2022. Repeat MRI brain in 12/2022 with ongoing enhancing right parietal lesion raising concern for vascular cause, C spine imaging normal. MRI L spine also normal. Reports on going/worsening right sided symptoms and low back pain. We discussed the following: Abnormal MRI brain - Discussed MRIs and continued enhancement raises concern for vascular vs demyelination as cause. Her symptoms from 04/2022 do not correlate with a right sided enhancing lesion. Harder to meet separation in space and timer criteria. Does have abnormal T2 lesions but normal cord imaging and CSF. Right leg symptoms still with no clear cause. Reviewed potential MS diagnosis. Prefers natural options. JCV level 0.21 neg. If monoclonal antibody treatments are needed in the futurewould need to make sure patient is comfortable taking medication derived from cells (cannot have any medications derived from blood products). Plan updated brain MRI around 12/2023. Counseled On Exercise & Appropriate Physical Activity Vitamin D - Goal 60-80. Symptoms Right lower extremity - progression of weakness/numbness. Possible MS vs radiculopathy. MRI L spinenormal. Discussed EMG but with normal MRI L spine will defer. Has had improvement with PT and has continued to do the exercises. Encouraged baclofen. Have discussed pain/ortho eval for potential piriformis syndrome. Tongue tremor - seen previously on exam. Vision - Intermittent sensation of right visual changes. MRI orbit reassuring. Placed ophthalmologyreferral in the past. Overall much improved. Back pain - improved with PT exercises. Right hand dexterity - Harder to draw and do hobbies. Consider OT in the future. Will call when elects to start. Other Weight loss - Working with [employer] No specific diagnosis. Loose stools resolved. No specific celiac label but more gluten sensitive. May want to avoid oral MS meds if remains concern. 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 Headache - Does have chronic headaches that are well controlled with controlling triggers/life style. Allergies - Has many allergies and sensitivities. Defer to treating providers. Anxiety - Feels better controlled. Does get worsening of neurological symptoms when anxious. MIPS Counseled On Exercise & Appropriate Physical Activity Patient is a non-smoker Guideline approved drug for acute headaches not prescribed because Patient is already on an effective [id number] (OTC) medication or an acute migraine medication prescribed by another clinician Medications and allergies reviewed. Follow up: 4-6 months (virtual okay) Time spent on the date of the encounter consisted of activities before, during and after the encounter as described above with a total time of: 60 minutes ASOUND SPECIALIST documented in this encounter Plan of Treatment Not on file documented as of this encounter Visit Diagnoses Diagnosis Abnormal brain MRI- Primary Nonspecific (abnormal) findings on radiological and other examination of skull and head documented in this encounter Care Teams Fire Extinguisher Mechanic Relationship Specialty Start Date End Date Clinic, [facility] PCP - Primary Care Clinic 06/04/22 Judie Sandoval PCP - General 06/02/23 Jac Guevara MD [address] [facility] [place] [address] Internal Medicine 01/01/23 documented as of this encounter
--- OUTSIDE RECORDS SUMMARY | 2023-07-02 07:11 | XMS_ITS | Referral Summary ---
Author Name Unknown Organization [facility] Address [address] [place] [address] Care Team Providers Care Bleaching Machine Operator Name Role Phone Clinic, [facility] Unavailable Unavailable Jac Guevara MD Unavailable [phone] Judie Sandoval Primary Care Provider Unavailab le Encounters Date Type Department Care Team Description 06/05/2023 9:00 AM PATIENT REPRESENTATIVE Virtual Visit [facility] [address] [address] Corrie Manley PA-C Abnormal brain MRI (Primary Dx) from Last 3 Months Allergies Active Allergy Reactions Criticality Noted Date Comments Acetaminophen Vomiting 07/04/2022 [place] 07/04/2022 Gluten 07/04/2022 Penicillins Unknown,Other 04/28/2022 Family history Medications Medication Sig Dispensed Refills Start Date End Date Status MAGNESIUM GLYCEROPHOSPHATE by [facility].(Non-Drug; Combo Route) route. 0 Active cholecalciferol, vitamin D3, 25 mcg, 1000 unit, 25 mcg (1,000 unit) oral tablet Take 1 tablet (25 mcg) by mouth once daily. 0 Active baclofen (LIORESAL) 10 mg oral tabletIndications:Mult iple sclerosis (HCC) Take 1/2 tablet twice daily as needed for muscle cramping. 30 tablet 3 01/01/2023 Active methylPREDNISolone (MEDROL DOSPAK) 4 mg oral dospak Take 1 pack as prescribed 1 tablet 0 01/01/2023 Active Active Problems No known active problems Immunizations Name Administration Dates Next Due SPIKEVAX (Moderna) 12+ Yrs M ONOVALENT COVID Vaccine 08/27/2021,02/01/2021,01/04/2021 Social History Tobacco Use Types Packs/Day Years Used Date Smoking Tobacco: Never Smokeless Tobacco: Never Alcohol Use Standard Drinks/Week Comments Never 0 (1 standard drink = 0.6 oz pur e alcohol) Sex and Gender Information Value Date Recorded Sex Assigned at Not on file Gender Identity Female 06/04/2022 3:40 PM PATIENT REPRESENTATIVE Sexual Orientation Straight 06/04/2022 3: 40 PM PATIENT REPRESENTATIVE Last Filed Vital Signs Vital Sign Reading [...] Mass Index 16.36 01/30/2023 11:08 AM CDT Plan of Treatment Not on file Care Teams Bleaching Machine Operator Relationship Specialty Start Date End Date Clinic, [facility] PCP - Primary Care Clinic 06/04/22 Judie Sandoval PCP - General 06/02/23 Jac Guevara MD [address] [place] [address] Internal Medicine 01/01/23
--- OUTSIDE RECORDS SUMMARY | 2023-07-02 07:11 | XMS_ITS | Clinical Summary ---
Author Name Unknown Organization [facility] Address [address] [place] [address] Care Team Providers Care National Expansion Recruiter Name Role Phone Clinic, [facility] Unavailable Unavailable Jac Guevara MD Unavailable [phone] Judie Sandoval Primary Care Provider Unavailab le Allergies Active Allergy Reactions Criticality Noted Date Comments Acetaminophen Vomiting 07/04/2022 [place] 07/04/2022 Gluten 07/04/2022 Penicillins Unknown,Other 04/28/2022 Family history Medications Medication Sig Dispensed Refills Start Date End Date Status MAGNESIUM GLYCEROPHOSPHATE by [facility].(Non-Drug; Combo Route) route. 0 Active cholecalciferol, vitamin [...] Active Active Problems No known active problems Encounters Date Type Department Care Team Description 06/05/2023 9:00 AM SALON ASSISTANT Virtual Visit [facility] Neurology [address] [address] Corrie Manley PA-C Abnormal brain MRI (Primary Dx) from Last 3 Months Immunizations Name Administration Dates Next Due SPIKEVAX (Moderna) 12+ Yrs M ONOVALENT COVID Vaccine 08/27/2021,02/01/2021,01/04/2021 Family History Medical History Relation Comments Alcohol Abuse Brother Allergies Father Depression Mother Relation Status Comments Brother Father Mother Social History Tobacco Use Types Packs/Day Years Used Date Smoking Tobacco: Never Smokeless Tobacco: Never Alcohol Use Standard Drinks/Week Comments Never 0 (1 standard drink = 0.6 oz pur e alcohol) Sex and Gender Information Value Date Recorded Sex Assigned at Not on file Gender Identity Female 06/04/2022 3:40 PM SALON ASSISTANT Sexual Orientation Straight 06/04/2022 3: 40 PM SALON ASSISTANT Last Filed Vital Signs Vital Sign Reading [...] 01/30/2023 11:08 AM CDT Plan of Treatment Health Maintenance Due Date Last Done Comments Hepatitis C Screening 1979 Lipid Screening 1979 Mammogram Screening 1979 Pap Smear 1979 Anxiety Screening (TINO-2) 09/30/1980 Depression Assessment (PHQ-2) 09/30/1980 Adult Tetanus Booster 09/30/1998 COVID-19 Vaccine (2022-2 4 season) 2023 08/27/2021, 02/01/2021, 01/04/2021 Influenza Vaccine (#1) 2023 Pneumococcal <65 Aged Out No longer e ligible based on patient's age to complete this topic Care Teams National Expansion Recruiter Relationship Specialty Start Date End Date Clinic, [facility] PCP - Primary Care Clinic 06/04/22 Judie Sandoval PCP - General 06/02/23 Jac Guevara MD [address] [place] [address] Internal Medicine 01/01/23
--- OUTSIDE RECORDS SUMMARY | 2023-07-02 07:11 | XMS_ITS | Encounter Summary ---
Author Name Unknown Organization [facility] Address [address] [place] [address] Care Team Providers Care Church Communications Administrator Name Role Phone Clinic, [facility] Unavailable Unavailable Jac Guevara MD Unavailable Reason for Visit * Reason Comments Multiple Sclerosis Encounter Details Date Type Department Care Team (Late st Contact Info) Description 01/01/2023 3:00 PM CDT Office Visit [facility] - [address] [phone] Patricia Fernán[place] [address] [place] [id number] Multiple sclerosis (HCC) (Primary Dx); Right leg weakness Social History Tobacco Use Types Packs/Day Years Used Date Smoking Tobacco: Never Smokeless Tobacco: Never Alcohol Use Standard Drinks/Week Comments Never 0 (1 standard drink = 0.6 oz pur e alcohol) Sex and Gender Information Value Date Recorded Sex Assigned at Not on file Gender Identity Female 06/04/2022 3:40 PM ASSEMBLER RADIO AND ELECTRICAL Sexual Orientation Straight 06/04/2022 3: 40 PM ASSEMBLER RADIO AND ELECTRICAL documented as of this encounter Last Filed Vital Signs Vital Sign Reading Time Taken Comments Blood Pressure 127/80 01/01/2023 3:04 PM CDT Pulse 87 01/01/2023 3:04 PM CDT Temperature - - Respiratory Rate - - Oxygen Saturation - - Inhaled Oxygen Concentration - - Weight 51.3 kg (113 lb) 01/01/2023 3:04 PM CDT Height 177.8 cm (5' 10) 01/01/2023 3:04 PM CDT Body Mass Index 16.21 01/01/2023 3:04 PM CDT documented in this encounter Progress Notes * Patricia Fernández MD - 01/01/2023 3:00 PM CDT In the interval since her last visit, labs done 07/04/22. PT referral sent 10/15/22. Left portal msg 12/19/22, reported more difficult to stand longer periods of time, lower back pain, right leg tingling/numbness and increased weakness, advised to have MRIs and to schedule appt to further discuss. MRI T /Orbits done 12/30/22, normal. Today, reports increased back and neck weakness. Reports intermittent episodes of pulses in muscles throughout her body. She reports never actually started baclofen. She reports seemed right leg symptoms seemed to be improving in that muscle spasms/numbness was less intense but never resolved. However, now with ongoingsensation of right leg feeling abnormal (describes will get burning in right calf and then will progress to having radiation of pain into upper leg/back ). She reports then will develop pain/shakiness/weakness in back/leg. Reports does have some hx of low back pain with seeing chiropractor in past with hx of psoas injury (told L5 injury by chiro in past). She reports now with some radiation into right posterior leg but now entire right leg affected. Prolonged sitting or walking longer than 500 s teps will trigger. She is now doing PT with [place]. Reports has had one instance of left arm weakness when attempting to lift a pitcher of water. She reports right vision improved but can worsen with heat. Did have a couple instance during a week in November with numbness in face/lips. She reports hx of tongue tremor for past year. Reports has been having ongoing GI issues. Reports that now with more gluten sensitivity vs true celiac. Reports was having loose stools. Has continued to have weight loss/fluctuation. Reports weight loss has stabilized. Is now seeing shallot cleaner. Is following with Dr. Guevara. Chronic Symptoms Memory - foggy feeling, trouble [...] with perception on the right. Often intermittent. Reports hx of intermittent neurological symptoms of numbness/weakness sensations in 20s - 30s that have been intermittent. Summer 2021 - Started had unintentional [...] a MS specialist. 05/2022 - Seen at [facility] ER for muscle cramping in her [...] given Zofran but reports did not take. 07/2022 - seen by Dr. Fernández's team with celine Vineet - agreed with RRMS diagnosis. Recommended start symptomatic meds for muscle pain. Plan updated screening labs and reviewed DMT options. Never actually started on DMT LABS CSF - 06/23/22 - Protein 29, WBC 1, RBC 0, Glucose 58, Oligoclonal bands 0, IgG index wnl 09/26/22 - [facility] - Vit D 33.6. Lyme neg. 07/04/2022 - Vit D 31.5, Vit B12 648, Lyme neg, DENA neg, DENA comp neg, PHILIPPE wnl, 05/20/22 - CRP wnl, HIV negative, TSH wnl, A1c wnl 04/28/22 - CBC w/diff wnl, ESR wnl, Comp with alk phos 46 JCV hx 07/2022 JCV - 0.21 neg - IMAGING 12/30/22 MRI Facial/Orbits wo lidia - No comparison [...] MAGNESIUM GLYCEROPHOSPHATE by [facility].(Non-Drug; Combo Route) route. 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 Cardiovascular: Bilateral lower extremities with no edema. Distal pulses palpable. Respiratory: Breathing non labored. NEUROLOGICAL EXAM BP 127/80 Pulse 87 Ht 5' 10 (1.778 m) Wt 51.3 kg (113 lb) BMI 16.21 kg/m?? Mental Status: Alert and orientated. Able to provide detailed medical history. Language is fluent. Speech without dysarthria. Cranial Nerves: Extraocular movements are full without nystagmus. Pupils are equal round and reactive to light. Face is symmetric with full sensation bilaterally. Tongue is midline and palate elevates symmetrically but tremor of tongue seen. Shoulder shrug is 5/5 bilaterally. Neck flexion [...] tandem without difficulty. 25 foot timed walk 5.76 seconds on 01/01/23 ASSESSMENT AND PLAN Natasha Milton is a 41 y.o. female with hx of recent unexplained [...] MRI T spine without lesions in 12/2022. Now reports ongoing/worsening right leg symptoms and with increased low back pain. Describes weakness/numbness of right leg. Exam reassuring in terms of right leg but tongue tremor seen. We discussed the following: MS - Discussed she does meet criteria of separation in space and time given one lesion was enhancing and does have lesions in two areas of the brain. Reviewed her symptoms from 04/2022 do not correlate with a right sided enhancing lesion but even so given hx of other intermittent neurological symptoms, she meets criteria of separation in space and time. Now with increased right leg weakness/numbness with hx of chronic low back pain. Describes more gradual progression than acute worsening possible related to MS vs more peripheral nerve issue. Encouraged updated MRI B/C to eval and help with DMT selection. Still reports prefers natural options. Discussed steroids for symptoms. Given medrol dose marichuy and will consider pending MRIs/symptoms. JCV level 0.21 neg. If monoclonal antibody treatments are needed in the future would need to make sure patient is comfortable taking medication derived from cells (cannot have any medications derived from blood products). Counseled On Exercise & Appropriate Physical Activity Vitamin D - Goal 60-80. Level 36 - encouraged supplement Symptoms Right lower extremity - progression of weakness/numbness/ possible Ms vs radiculopathy - eval as above and obtain MRI L spine. Has had PT. Never started baclofen. Gave to use PRn. Steroid discussed as above. Consider EMG pending MRIs. Tongue tremor - seen on exam - will trend Vision - Intermittent sensation of right visual changes. MRI orbit reassuring. Has referral to see ophthalmology at time of last visit - overall much improved. Other Weight loss/ - Working with [facility] records requested. No specific diagnosis. Loose stools resolved. No specific celiac label but more gluten sensitive. May want to avoid oral MS meds if remains concern. 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 Headache - Does have chronic headaches that are well controlled with controlling triggers/life style. Does report increase in headaches since spinal tap. Unable to have blood patch due to baptism reasons (Jehovah witness). Deferred today. Follow up: 1 mo Time spent on the date of the encounter consisted of activities before, during and after the encounter as described above with a total time of: 69 min documented in this encounter Plan of Treatment Scheduled Orders Name Type Priority Associated Diagnoses Orde r Schedule STRATIFY JCV(TM) ANTIBODY W/RFLX INHIBITION (QUEST) Lab Routine Multiple sclerosis (HCC) Expected: 01/01/2023, Expires: 01/02/2024 documented as of this encounter Visit Diagnoses Diagnosis Multiple sclerosis (HCC)- Primary Multiple sclerosis Right leg weakness Other musculoskeletal symptoms referable to limbs documented in this encounter Care Teams Church Communications Administrator Relationship Specialty Start Date End Date Clinic, [facility] PCP - Primary Care Clinic 06/04/22 Jac Guevara MD [address] [facility] [address] [place] [address] Internal Medicine 01/01/23 documented as of this encounter
--- OUTSIDE RECORDS SUMMARY | 2023-07-02 07:12 | XMS_ITS | Clinical Summary ---
Author Name Unknown Organization [facility] [employer] [facility] Address [place], [place] [address] Care Team Providers Care Silhouette Artist Name Role Phone Judie Sandoval Primary Care Provider [phone] Allergies Active Allergy Reactions Criticality Noted Date Comments Acetaminophen Vomiting 07/04/2022 Penicillins *Unknown 04/28/2022 Family history Medications Medication Sig Dispensed Refills Start Date End Date Status sertraline (ZOLOFT) 25 mg tabletIndications:Adj ustment disorder with depressed mood Take 1 Tablet (25 mg) by mouth every morning. 30 Tablet 1 02/09/2023 Active Active Problems Problem Noted Date Diagnosed Date Vitamin D deficiency 08/26/2022 Encounters Date Type Department Care Team Description 05/14/2023 Telephone [facility] [address] [place] [address] Judie Sandoval PA envelope dropped off 05/08/2023 Telephone [facility] [address] [place] [address] Judie Sandoval PA Physical Therapy 05/06/2023 Nurse Triage [facility] [address] [place] [address] Judie Sandoval PA Melwanda 04/16/2023 8:45 AM DISABILITY PROGRAM NAVIGATOR Ancillary Procedure [facility] [address] [place] [address] 04/16/2023 Travel 04/14/2023 Telephone [facility] [address] [place] [address] Judie Sandoval PA FYI from Last 3 Months Immunizations Name Administration Dates Next Due COVID-19 vaccine (Moderna 10 0mcg/0.5mL) MIRIAN MAZARIEGOS 08/27/2021,02/01/2021,01/04/2021 Social History Tobacco Use Types Packs/Day Years Used Date Smoking Tobacco: Never Smokeless Tobacco: Never Tobacco Cessation:Counseling Given: Yes Alcohol Use Standard Drinks/Week Comments Not Currently 0 (1 standard drink = 0.6 oz pur e alcohol) PHQ-2 Answer Date Recorded PHQ-2 TOTAL SCORE 5 02/09/2023 Social Connections Answer Date Recorded Frequency of Communication with Friends and Fami ly 4 12/04/2022 Financial Resource Strain Answer Date R ecorded Difficulty of Paying Living Expenses 3 12/04/2022 Difficulty of Paying Living Expenses Not on file 12/04/2022 Food Insecurity Answer Date Recorded Worried About Running Out of Food in the Last Ye ar 1 12/04/2022 Transportation Needs Answer Date Record ed Lack of Transportation (Medical) 1 12/04/2022 Housing Stability Answer Date Recorded Unable to Pay for Housing in the Last Year 2 12/04/2022 Sex and Gender Information Value Date Recorded Sex Assigned at Not on file Gender Identity Not on file Sexual Orientation Not on file Obstetrics History Last Filed Vital Signs Vital Sign Reading Time Taken Comments Blood Pressure 143/83 02/09/2023 8:39 AM CDT Pulse 103 02/09/2023 8:39 AM CDT Temperature 37.8 ??C (100 ??F) 04/28/2022 8:30 AM DISABILITY PROGRAM NAVIGATOR Respiratory Rate 12 06/23/2022 11:00 AM DISABILITY PROGRAM NAVIGATOR Oxygen Saturation 99% 02/09/2023 8:39 AM CDT Inhaled Oxygen Concentration - - Weight 53.1 kg (117 lb) 02/09/2023 8:39 AM CDT Height 177.8 cm (5' 10) 12/22/2022 1:01 PM CDT Body Mass Index 16.79 12/22/2022 1:01 PM CDT Plan of Treatment Upcoming Encounters Date Type Department Care Team (Late st Contact Info) Description 07/06/2023 8:30 AM DISABILITY PROGRAM NAVIGATOR Office Visit [facility] [address] [place] [address] Miguel Kovacs, [facility] [address] [place] [address] 07/23/2023 8:30 AM DISABILITY PROGRAM NAVIGATOR Ancillary Procedure [facility] [address] [place] [address] 07/27/2023 8:15 AM DISABILITY PROGRAM NAVIGATOR Office Visit [facility] [address] [place] [address] Judie Sandoval PA [address] [place] [address] Health Maintenance Due Date Last Done Comments Tdap 09/30/1990 Tetanus booster 1999 Pap test for age 21-65 09/30/2000 COVID-19 vaccine series ( season) 2023 08/27/2021, 02/01/2021, 01/04/2021 Influenza for age 9-49 01/30/2023 BMI (ht and wt on same day) for age 18+ 12/23/2023 12/22/2022, 06/04/2022, 05/20/2022 Depression screening for age 12+ 02/10/2024 02/09/2023, 04/28/2022, 04/28/2022 HIV for age 15-65 Completed 05/20/2022 Hepatitis C screening for ag e 18-79 Completed 05/20/2022 Pneumococcal series for age 6-64 Aged Out No longer eligible b ased on patient's age to complete this topic Procedures Procedure Name Priority Date/Time Associated Diagnosis Comments XR SHOULDER 3 VIEWS LEFT Routine 04/16/2023 8:55 AM DISABILITY PROGRAM NAVIGATOR Acute pain of left shoulder from Last 3 Months Results * XR SHOULDER 3 VIEWS LEFT (04/16/2023 8:55 AM DISABILITY PROGRAM NAVIGATOR) Anatomical Region Laterality Modality SHOULDERS, SHOULDER L Computed R adiography 04/16/2023 10:4 5 AM DISABILITY PROGRAM NAVIGATOR Narrative 04/16/2023 10:45 AM DISABILITY PROGRAM NAVIGATOR For Patients: ??As a result of the Cures Act, medical imaging exams and procedure reports are released immediately into your electronic medical record. ??You may view this report before your referring provider. ??If you have questions, please contact your health care provider. Indication: Left shoulder pain. Technique: Left shoulder 3 views. Comparison: None. Findings: Small calcified granuloma in the left lung apex. Osteopenia. No fracture. No significant arthropathy. Impression: No fracture. Dictated by Roney Adan MD @ Apr 16 2023 10:45AM (Electronically Signed) ?? Procedure Note Roney Adan MD - 04/16/2023 For Patients: As a result of the Cures Act, medical imagingexams and procedure reports are released immediately into your electronicmedical record. You may view this report before your referring provider.If you have questions, please contact your health care provider. Indication: Left shoulder pain. Technique: Left shoulder 3 views. Comparison: None. Findings: Small calcified granuloma in the left lung apex. Osteopenia. No fracture.No significant arthropathy. Impression: No fracture. Dictated by Roney Adan MD @ Apr 16 2023 10:45AM (Electronically Signed) [facility] from Last 3 Months Advance Directives Documents on File Type Date Recorded Patient Instrument And Control Service Person Expl anation Healthcare Directive 04/27/2022 022 Care Teams Silhouette Artist Relationship Specialty Start Date End Date Judie Sandoval PA [address] [place] [address] PCP - General Physician Microbiology Coordinator 05/06/22
--- OUTSIDE RECORDS SUMMARY | 2023-07-02 07:12 | XMS_ITS | Encounter Summary ---
Author Name Unknown Organization [facility] Address [address] [place] [id number] Care Team Providers Care Public Health Officer Name Role Phone Clinic, [facility] Unavailable Unavailable Reason for Visit * (Routine) - Pending Review Specialty Diagnoses / Procedures Referred By Navya woodward Referred To Contact Diagnoses Multiple sclerosis (HCC) Abnormal brain MRI Procedures MRI FACIAL/ORBITS W/O CON MRI FACIAL/ORBITS W/O&W CON Corrie Manley PA-C [address] [place] [address] Referral ID Status Reason Start Date Expiration Date V isits Requested Visits Authorized [id number] Pending Review 1 1 Encounter Details Date Type Department Care Team (Latest Contact Info) Description 12/30/2022 10:00 AM CDT Ancillary Procedure [facility] [address] [place] [address] Multiple sclerosis (HCC); Abnormal brain MRI Social History Tobacco Use Types Packs/Day Years Used Date Smoking Tobacco: Never Smokeless Tobacco: Never Alcohol Use Standard Drinks/Week Comments Never 0 (1 standard drink = 0.6 oz pur e alcohol) Sex and Gender Information Value Date Recorded Sex Assigned at Not on file Gender Identity Female 06/04/2022 3:40 PM STAFF CYTOTECHNOLOGIST Sexual Orientation Straight 06/04/2022 3: 40 PM STAFF CYTOTECHNOLOGIST documented as of this encounter Plan of Treatment Not on file documented as of this encounter Procedures Procedure Name Priority Date/Time Associated Diagnosis Comments MRI FACIAL/ORBITS W/O CON Routine 12/30/2022 10:43 AM CDT Multiple sclerosis (HCC) Abnormal brain MRI documented in this encounter Results * MRI FACIAL/ORBITS W/O CON (12/30/2022 10:43 AM CDT) Anatomical Region Laterality Modality Head Magnetic Resonan ce 12/30/2022 11:5 1 AM CDT Impressions 12/30/2022 11:55 AM CDT 1. ??Normal nonenhanced MRI of the orbits. Signed by Trae Ta M.D. Narrative 12/30/2022 11:55 AM CDT EXAM: MRI FACIAL/ORBITS W/O CON 12/30/2022. COMPARISON: ??None. HISTORY: Patient undergoing evaluation for MS with reports of vision changes on the right. ICD-10: ??G35 Multiple sclerosis R90.89 Other abnormal findings on diagnostic imaging of central nervous system TECHNIQUE: Sagittal T1, coronal T2 with fat suppression, axial T1 and axial T2 weighted imaging of the orbits. Additional axial diffusion and axial gradient echo imaging of the brain. No intravenous contrast was requested. FINDINGS: ??The globes are intact. No retrobulbar mass is seen. Extraocular muscles are normal symmetric appearing. The optic nerves are without abnormal intrinsic T2 prolongation or mass. Optic chiasm and proximal optic tracts are unremarkable. Pituitary appears normal. No suprasellar cistern mass is seen. Trivial ethmoid sinus mucosal thickening, insignificant. Remaining visualized paranasal sinuses and mastoid air cells are clear. No restricted diffusion or gradient signal abnormality is seen. Procedure Note Trae Ta MD - 12/30/2022 EXAM: MRI FACIAL/ORBITS W/O CON 12/30/2022. COMPARISON: None. HISTORY: Patient undergoing evaluation for MS with reports of visionchanges on the right. ICD-10: G35 Multiple sclerosis R90.89 Other abnormal findings ondiagnostic imaging of central nervous system TECHNIQUE: Sagittal T1, coronal T2 with fat suppression, axial T1 andaxial T2 weighted imaging of the orbits. Additional axial diffusion andaxial gradient echo imaging of the brain. No intravenous contrast wasrequested. FINDINGS: The globes are intact. No retrobulbar mass is seen. Extraocularmuscles are normal symmetric appearing. The optic nerves are withoutabnormal intrinsic T2 prolongation or mass. Optic chiasm and proximaloptic tracts are unremarkable. Pituitary appears normal. No suprasellarcistern mass is seen. Trivial ethmoid sinus mucosal thickening, insignificant. Remainingvisualized paranasal sinuses and mastoid air cells are clear. No restricted diffusion or gradient signal abnormality is seen. IMPRESSION 1. Normal nonenhanced MRI of the orbits. Signed by Trae Ta M.D. Patricia Fernández MD MRI ORDERABLE documented in this encounter Visit Diagnoses Diagnosis Multiple sclerosis (HCC) Multiple sclerosis Abnormal brain MRI Nonspecific (abnormal) findings on radiological and other examination of skull and head documented in this encounter Care Teams Public Health Officer Relationship Specialty Start Date End Date Clinic, [facility] PCP - Primary Care Clinic 06/04/22 documented as of this encounter
--- OUTSIDE RECORDS SUMMARY | 2023-07-02 07:12 | XMS_ITS | Encounter Summary ---
Author Name Unknown Organization [facility] Address [address] [place] [address] Care Team Providers Care Jewel Hole Cornerer Name Role Phone Clinic, [facility] Unavailable Unavailable Reason for Visit * (Routine) - Pending Review Specialty Diagnoses / Procedures Referred By Navya woodward Referred To Contact Diagnoses Multiple sclerosis (HCC) Abnormal brain MRI Procedures MRI SPINE THORACIC W/O CON MRI SPINE THORACIC W/O&W CON Corrie Manley PA-C [address] [place] [address] Referral ID Status Reason Start Date Expiration Date V isits Requested Visits Authorized [id number] Pending Review 1 1 Encounter Details Date Type Department Care Team (Latest Contact Info) Description 12/30/2022 10:45 AM CDT Ancillary Procedure [facility] [address] [place] [address] Multiple sclerosis (HCC); Abnormal brain MRI Social History Tobacco Use Types Packs/Day Years Used Date Smoking Tobacco: Never Smokeless Tobacco: Never Alcohol Use Standard Drinks/Week Comments Never 0 (1 standard drink = 0.6 oz pur e alcohol) Sex and Gender Information Value Date Recorded Sex Assigned at Not on file Gender Identity Female 06/04/2022 3:40 PM VOCATIONAL TECHNICAL EDUCATION DIRECTOR Sexual Orientation Straight 06/04/2022 3: 40 PM VOCATIONAL TECHNICAL EDUCATION DIRECTOR documented as of this encounter Plan of Treatment Not on file documented as of this encounter Procedures Procedure Name Priority Date/Time Associated Diagnosis Comments MRI SPINE THORACIC W/O CON Routine 12/30/2022 10:53 AM CDT Multiple sclerosis (HCC) Abnormal brain MRI documented in this encounter Results * MRI SPINE THORACIC W/O CON (12/30/2022 10:53 AM CDT) Anatomical Region Laterality Modality Spine Magnetic Resonan ce 12/30/2022 11:4 9 AM CDT Impressions 12/30/2022 11:51 AM CDT 1. ??Normal thoracic spinal cord and conus medullaris. 2. ??Subtle thoracic spinal curvature, without significant spondylosis or spinal stenosis. Signed by Trae Ta M.D. Narrative 12/30/2022 11:51 AM CDT EXAM: MRI SPINE THORACIC W/O CON 12/30/2022. COMPARISON: ??None. HISTORY: Patient undergoing evaluation for possible MS. This will serve as baseline imaging for her thoracic spine. ICD-10: ??G35 Multiple sclerosis R90.89 Other abnormal findings on diagnostic imaging of central nervous system TECHNIQUE: ??Sagittal FSE T1, sagittal FSE T2, sagittal FSE STIR T2, axial T2 GRE. FINDINGS: ??The thoracic spinal cord is normal in signal and caliber. Conus medullaris terminates at L1-L2 and is normal. Subtle thoracic spinal curvature is seen. Thoracic vertebral height is maintained. Marrow signal appears benign. Thoracic intervertebral disc height and hydration are maintained. No thoracic disc herniation is identified. Central canal and neural foramina are patent in the thoracic spine. Procedure Note Trae Ta MD - 12/30/2022 EXAM: MRI SPINE THORACIC W/O CON 12/30/2022. COMPARISON: None. HISTORY: Patient undergoing evaluation for possible MS. This will serve asbaseline imaging for her thoracic spine. ICD-10: G35 Multiple sclerosis R90.89 Other abnormal findings ondiagnostic imaging of central nervous system TECHNIQUE: Sagittal FSE T1, sagittal FSE T2, sagittal FSE STIR T2, axialT2 GRE. FINDINGS: The thoracic spinal cord is normal in signal and caliber. Conusmedullaris terminates at L1-L2 and is normal. Subtle thoracic spinal curvature is seen. Thoracic vertebral height ismaintained. Marrow signal appears benign. Thoracic intervertebral disc height and hydration are maintained. No thoracic disc herniation is identified. Central canal and neuralforamina are patent in the thoracic spine. IMPRESSION 1. Normal thoracic spinal cord and conus medullaris. 2. Subtle thoracic spinal curvature, without significant spondylosis orspinal stenosis. Signed by Trae Ta M.D. Patricia Fernández MD MRI ORDERABLE documented in this encounter Visit Diagnoses Diagnosis Multiple sclerosis (HCC) Multiple sclerosis Abnormal brain MRI Nonspecific (abnormal) findings on radiological and other examination of skull and head documented in this encounter Care Teams Jewel Hole Cornerer Relationship Specialty Start Date End Date Clinic, [facility] PCP - Primary Care Clinic 06/04/22 documented as of this encounter
--- OUTSIDE RECORDS SUMMARY | 2023-07-02 07:12 | XMS_ITS | Encounter Summary ---
Author Name Unknown Organization [facility] Address [address] [place] [address] Care Team Providers Care Director Of Pediatric Rehabilitation Name Role Phone [facility] Unavailable Unavailable Encounter Details Date Type Department Care Team (Latest Contact Info) Description 07/04/2022 Travel Social History Tobacco Use Types Packs/Day Years Used Date Smoking Tobacco: Never Smokeless Tobacco: Never Alcohol Use Standard Drinks/Week Comments Never 0 (1 standard drink = 0.6 oz pur e alcohol) Sex and Gender Information Value Date Recorded Sex Assigned at Not on file Gender Identity Female 06/04/2022 3:40 PM SOLID WASTE FACILITY SUPERVISOR Sexual Orientation Straight 06/04/2022 3: 40 PM SOLID WASTE FACILITY SUPERVISOR COVID-19 Exposure Response Date Recorded In the last 10 days, have yo u been in contact with someone who was confirmed or suspected to have Coronavirus/COVID-19? No / Unsure 07/04/2022 8:59 AM SOLID WASTE FACILITY SUPERVISOR documented as of this encounter Plan of Treatment Not on file documented as of this encounter Visit Diagnoses Not on filedocumented in this encounter Care Teams Director Of Pediatric Rehabilitation Relationship Specialty Start Date End Date [facility] PCP - Primary Care Clinic 06/04/22 documented as of this encounter
--- OUTSIDE RECORDS SUMMARY | 2023-07-02 07:12 | XMS_ITS | Encounter Summary ---
Author Name Unknown Organization [facility] Address [address] [place] [address] Care Team Providers Care Transfill Technician Name Role Phone Clinic, [facility] Unavailable Unavailable Reason for Referral * Consultation (Routine) - Pending Review Specialty Diagnoses / Procedures Referred By Navya woodward Referred To Contact Physical Therapy Diagnoses Multiple sclerosis (HCC) Low back pain with left-sided sciatica, unspecified back pain laterality, unspecified chronicity Patricia Fernández MD [address] [place] [phone] , Not Listed no address Referral ID Status Reason Start Date Expiration Date Visits Requested Visits Authorized [id number] Pending Review Specialty Services Required 07/04/2022 1 1 Question Answer Service to provide Physical Therapy Referral reason Evaluate and Treat Comments Patient with recent diagnosis of MS who has chronic low back pain. Please evaluate and treat. Rehabilitation Services [facility] DISTRIBUTOR Reason for Visit * Reason Comments Consultation Encounter Details Date Type Department Care Team (Late st Contact Info) Description 07/04/2022 1:00 PM CAR DISTRIBUTOR Office Visit [facility] [address] [phone] Corrie Manley PA-C [address] [place] [phone] Multiple sclerosis (HCC) (Primary Dx); Abnormal brain MRI; Drug therapy; Vitamin D deficiency; Vitamin B12 deficiency; Low back pain with left-sided sciatica, unspecified back pain laterality, unspecified chronicity Social History Tobacco Use Types Packs/Day Years Used Date Smoking Tobacco: Never Smokeless Tobacco: Never Alcohol Use Standard Drinks/Week Comments Never 0 (1 standard drink = 0.6 oz pur e alcohol) Sex and Gender Information Value Date Recorded Sex Assigned at Not on file Gender Identity Female 06/04/2022 3:40 PM CAR DISTRIBUTOR Sexual Orientation Straight 06/04/2022 3: 40 PM CAR DISTRIBUTOR COVID-19 Exposure Response Date Recorded In the last 10 days, have yo u been in contact with someone who was confirmed or suspected to have Coronavirus/COVID-19? No / Unsure 07/04/2022 8:59 AM CAR DISTRIBUTOR documented as of this encounter Last Filed Vital Signs Vital Sign Reading Time Taken Comments Blood Pressure 111/72 07/04/2022 2:13 PM CAR DISTRIBUTOR Pulse 101 07/04/2022 2:13 PM CAR DISTRIBUTOR Temperature - - Respiratory Rate - - Oxygen Saturation - - Inhaled Oxygen Concentration - - Weight 53.5 kg (118 lb) 07/04/2022 2:13 PM CAR DISTRIBUTOR Height 175.3 cm (5' 9) 07/04/2022 2:13 PM CAR DISTRIBUTOR Body Mass Index 17.43 07/04/2022 2:13 PM CAR DISTRIBUTOR documented in this encounter Patient Instructions * Patient Instructions* Corrie Manley PA-C - 07/04/2022 1:00 PM CAR DISTRIBUTOR Labs Next Due: Labs are due today. MRIs Next Due: The MRI department should call you to schedule. You can also call them to schedule. MRI Department Option 1. Referrals: Physical Therapy DISTRIBUTOR documented in this encounter Plan of Treatment Scheduled Referrals Name Type Priority Associated Diagnoses Orde r Schedule REFERRAL PHYSICAL THERAPY Follow Up Routine Multiple sclerosis (HCC) Low back pain with left-sided sciatica, unspecified back pain laterality, unspecified chronicity Ordered: 07/04/2022 documented as of this encounter Procedures Procedure Name Priority Date/Time Associated Diagnosis Comments STRATIFY JCV(TM) ANTIBODY INHITIBITION ASSAY ([facility]) Routine 07/04/2022 3:20 PM CAR DISTRIBUTOR STRATIFY JCV(TM) ANTIBODY W/RFLX INHIBITION ([facility]) Routine 07/04/2022 3:20 PM CAR DISTRIBUTOR Drug therapy ANTINUCLEAR AB 9 BY MULTIPLEX ([facility]) Routine 07/04/2022 2:39 PM CAR DISTRIBUTOR Drug therapy VITAMIN D, 25-HYDROXY ([facility]) Routine 07/04/2022 2:39 PM CAR DISTRIBUTOR Vitamin D deficiency ANGIOTENSIN-CONVERTIN G ENZYME ([facility]) Routine 07/04/2022 2:39 PM CAR DISTRIBUTOR Drug therapy DENA BY IFA, REFLEX TITER/PATTERN ([facility]) Routine 07/04/2022 2:39 PM CAR DISTRIBUTOR Drug therapy VITAMIN B12 ([facility]) Routine 07/04/2022 2:39 PM CAR DISTRIBUTOR Vitamin B12 deficiency LYME ANTIBODIES, MODIFIED 2-TIER TESTING PROFILE, SERUM/PLASMA ([facility]) Routine 07/04/2022 2:39 PM CAR DISTRIBUTOR Drug therapy documented in this encounter Results * STRATIFY JCV(TM) ANTIBODY INHITIBITION ASSAY ([facility]) (07/04/2022 3:20 PM CAR DISTRIBUTOR) Pathologist [facility] Stratify JCV(TM) Antibody Inhibition Assay ([facility]) FINAL RSLT: NEGATIVE [facility]/ [facility], Comment: REFERENCE RANGE: NEGATIVE INTERPRETATION: Positive: 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 ?indicating the patient has been exposed ?to JCV at an undetermined time Negative: Antibodies to JCV not detected 07/04/2022 3:20 PM CAR DISTRIBUTOR 07/05/2022 3:28 AM CAR DISTRIBUTOR Patricia Fernández MD [facility] [address] [place] [address] [facility], [address] [place] [address] * (ABNORMAL) STRATIFY JCV(TM) ANTIBODY W/RFLX INHIBITION ([facility]) (07/04/2022 3:20 PM CAR DISTRIBUTOR) Index Value ([facility]) 0.21(H) [facility], JCV Antibody ([facility]) INDETERMI LOULOU(A) [facility], Comment: See Inhibition Assay result below for the final antibody result. Index interpretive criteria: ? <0.20 negative ? 0.20-0.40 indeterminate ? >0.40 positive INTERPRETATION Negative: Antibodies to JCV not detected. Indeterminate: Low level reactivity detected, see ?Inhibition Assay result below for the final ?antibody result. Positive: 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 indicating ?the patient has been exposed to JCV at an ?undetermined time. The STRATIFY JCV Antibody Test is an enzyme-linked immunosorbent assay (SANTOSH) designed to detect JCV antibodies to help identify individuals who have been exposed to the virus. Samples with low level reactivity in the detection assay are retested in a confirmation (inhibition) assay to confirm presence or absence of JCV-specific antibodies. Retrospective analyses of post marketing data from various sources, including observational studies and spontaneous reports obtained worldwide, suggest that the risk of developing PML may be associated with relative levels of serum anti-JCV antibody as measured by anti-JCV antibody index.1 1TYSABRI(natalizumab)US Prescribing Information Blood 07/04/2022 3:20 PM CAR DISTRIBUTOR 07/05/2022 3:28 AM CAR DISTRIBUTOR Patricia Fernández MD [facility] ORDERABLES Performing Organization Address [facility] Co de Phone Number [facility] [address] [place] [address] [facility], [address] [place] [address] * ANTINUCLEAR ANTIBODIES, IFA ([facility]) (07/04/2022 2:39 PM CAR DISTRIBUTOR) Pathologist [facility] DENA IFA ([facility]) Negative [facility] 1 Comment: ? Negative ?? <1:80 ? Borderline ??1:80 ? Positive ?? >1:80 ICAP nomenclature: AC-0 For more information about Hep-2 cell patterns use ANApatterns.org, the official website for the International Consensus on Antinuclear Antibody (DENA) Patterns (ICAP). Blood 07/04/2022 2:39 PM CAR DISTRIBUTOR 07/03/2022 11:00 PM CAR DISTRIBUTOR Narrative [facility] 1 - 07/09/2022 11:06 PM CAR DISTRIBUTOR Performed at: ??01 - [facility] [address] ??[id number] Air Gun Operator: Enio Mustafa MD, Phone: ??[phone] Patricia Fernández MD [facility] ORDERABLES Performing Organization Address [facility] Co de Phone Number [facility] * ANGIOTENSIN-CONVERTING ENZYME ([facility]) (07/04/2022 2:39 PM CAR DISTRIBUTOR) Pathologist [facility] PHILIPPE ([facility]) 44 14 - 82 U/L [facility] 2 Blood 07/04/2022 2:39 PM CAR DISTRIBUTOR 07/03/2022 11:00 PM CAR DISTRIBUTOR Narrative [facility] 2 - 07/09/2022 11:06 PM CAR DISTRIBUTOR Performed at: ??02 - [facility] [address] ??[id number] Air Gun Operator: Alivia Yeung MD, Phone: ??[phone] Patricia Fernández MD [facility] ORDERABLES [facility] 2 * DENA COMPREHENSIVE PANEL ([facility]) (07/04/2022 2:39 PM CAR DISTRIBUTOR) Anti-DNA (DS) Antibody Quant ([facility]) <1 0 - 9 IU/mL [facility] 1 Comment: ? Negative ?<5 ? Equivocal ??5 - 9 ? Positive ?>9 ADMINISTRATIVE SUPPORT ASSOC Antibodies ([facility]) 0.3 0.0 - 0.9 AI [facility] 1 Baugh Antibodies ([facility]) <0.2 0.0 - 0.9 AI [facility] 1 Antiscleroderma-70 Antibodies ([facility]) <0.2 0.0 - 0.9 AI [facility] 1 Sjogren's Anti-SS-A ([facility]) <0.2 0.0 - 0.9 AI [facility] 1 Sjogren's Anti-SS-B ([facility]) <0.2 0.0 - 0.9 AI [facility] 1 Antichromatin Antibodies ([facility]) <0.2 0.0 - 0.9 AI [facility] 1 Anti-Clary-1 ([facility]) <0.2 0.0 - 0.9 AI [facility] 1 Anti-Centromere B Antibodies ([facility]) <0.2 0.0 - 0.9 AI [facility] 1 DENA Note ([facility]) Comment [facility] 1 Comment: Autoantibody ? Disease Association ?Condition ?Frequency ? --------- Antinuclear Antibody, ?SLE, mixed connective Direct (DENA-D) ? tissue diseases ? --------- dsDNA ?SLE ?40 - 60% ? --------- Chromatin ?Drug induced SLE ?90% ? SLE ?48 - 97% ? --------- SSA (Ro) ? SLE ?25 - 35% ? Sjogren's Syndrome ? 40 - 70% ? Lupus ? 100% ? --------- SSB (La) ? SLE ? 10% ? Sjogren's Syndrome ?30% ?--------- Sm (anti-Baugh) ?SLE ?15 - 30% ?--------- ADMINISTRATIVE SUPPORT ASSOC ?Mixed Connective Tissue ? Disease ? 95% (U1 nRNP, ?SLE ?30 - 50% anti-ribonucleoprotein) ??Polymyositis and/or ? Dermatomyositis ? 20% ? --------- Scl-70 (antiDNA ?Scleroderma (diffuse) ?20 - 35% topoisomerase) ? Crest ? 13% ? --------- Clary-1 ? Polymyositis and/or ? Dermatomyositis ?20 - 40% ? --------- Centromere B ? Scleroderma - Crest ? variant ? 80% Blood 07/04/2022 2:39 PM CAR DISTRIBUTOR 07/03/2022 11:00 PM CAR DISTRIBUTOR Narrative [facility] 1 - 07/09/2022 11:06 PM CAR DISTRIBUTOR Performed at: ??01 - [facility] [place] [address] [place] [address] ??[id number] Air Gun Operator: Enio Mustafa MD, Phone: ??[phone] Patricia Fernández MD [facility] ORDERABLES [facility] 1 * VITAMIN D, 25-HYDROXY ([facility]) (07/04/2022 2:39 PM CAR DISTRIBUTOR) Vitamin D,25 Hydroxy ([facility]) 31.5 30.0 - 100.0 ng/mL [facility] 3 Comment: Vitamin D deficiency has been defined by the [place] of Medicine and an Endocrine Society practice guideline as a level of serum 25-OH vitamin D less than 20 ng/mL (1,2). The Endocrine Society went on to further define vitamin D insufficiency as a level between 21 and 29 ng/mL (2). 1. IOM ([place] of Medicine). 2010. Dietary reference ?? intakes for calcium and D. [place]: The ?? National Academies Press. 2. Sunday MF, Anup [place], Jose Angel CARPIO, et al. ?? Evaluation, treatment, and prevention of vitamin D ?? deficiency: an Endocrine Society clinical practice ?? guideline. JCEM. 2011 Nov; 96(7):1911-30. Blood 07/04/2022 2:39 PM CAR DISTRIBUTOR 07/03/2022 11:00 PM CAR DISTRIBUTOR Narrative [facility] 3 - 07/09/2022 11:06 PM CAR DISTRIBUTOR Performed at: ??03 - [facility] [address] ??[id number] Air Gun Operator: Enio Mustafa MD, Phone: ??[phone] Patricia Fernández MD [facility] ORDERABLES Performing Organization Address [facility] de Phone Number [facility] 3 * VITAMIN B12 ([facility]) (07/04/2022 2:39 PM CAR DISTRIBUTOR) Pathologist [facility] Vitamin B12 ([facility]) [phone] - 1,245 pg/mL [facility] 3 Blood 07/04/2022 2:39 PM CAR DISTRIBUTOR 07/03/2022 11:00 PM CAR DISTRIBUTOR Narrative [facility] 3 - 07/09/2022 11:06 PM CAR DISTRIBUTOR Performed at: ??03 - [facility] [address] ??[id number] Air Gun Operator: Enio Mustafa MD, Phone: ??[phone] Patricia Fernández MD [facility] ORDERABLES Performing Organization Address [facility] de Phone Number [facility] 3 * LYME DISEASE SEROLOGY, W/REFLEX IMMUNOASSAY ([facility]) (07/04/2022 2:39 PM CAR DISTRIBUTOR) [facility] Lyme Total Antibody MEDARDO ([facility]) Negative Negative [facility] 4 Comment: Lyme antibodies not detected. Reflex testing is not indicated. No laboratory evidence of infection with B. burgdorferi (Lyme disease). Negative results may occur in patients recently infected (less than or equal to 14 days) with B. burgdorferi. ??If recent infection is suspected, repeat testing on a new sample collected in 7 to 14 days is recommended. Blood 07/04/2022 2:39 PM CAR DISTRIBUTOR 07/03/2022 11:00 PM CAR DISTRIBUTOR Narrative [facility] 4 - 07/09/2022 11:06 PM CAR DISTRIBUTOR Performed at: ??04 - [facility], [place], [place] ??[id number] Air Gun Operator: AURORA Galeano MD, Phone: ??[phone] Patricia Fernández MD [facility] ORDERABLES [facility] 4 documented in this encounter Visit Diagnoses Diagnosis Multiple sclerosis (HCC)- Primary Multiple sclerosis Abnormal brain MRI Nonspecific (abnormal) findings on radiological and other examination of skull and head Drug therapy Encounter for long-term (current) use of other medications Vitamin D deficiency Unspecified vitamin D deficiency Vitamin B12 deficiency Other B-complex deficiencies Low back pain with left-sided sciatica, unspecified back pain laterality, unspecified chronicity documented in this encounter Care Teams Transfill Technician Relationship Specialty Start Date End Date Clinic, [facility] PCP - Primary Care Clinic 06/04/22 documented as of this encounter
--- NOTE | 2023-07-02 07:15 | CRLHL7_ITS ---
For Patients: As a result of the Century Cures Act, medical imaging exams and procedure reports are released immediately into your electronic medical record. You may view this report before your referring provider. If you have questions, please contact your health care provider. INDICATION: Abnormal weight loss. TECHNIQUE: Abdominal MRI with T1 in- and out of phase, T2, diffusion weighted, and progressively delayed post-contrast images. Intravenous gadolinium administered. FINDINGS: No fatty infiltration of the liver. A few small cysts in the liver with the largest located in segment 2 measuring 1.0 cm. No other focal abnormalities identified in the visualized portions of the liver, spleen, pancreas, adrenal glands, and kidneys. No hydronephrosis. No adenopathy. IMPRESSION: 1. No acute abnormalities of the abdomen identified. 2. A few small cysts in the liver. Dictated by Naveed Ferrera MD @ 07/03/2023 2:15:16 PM (Electronically Signed)
== END 2023-07-02 07:09 | disposition home or self-care (01) ==
PROVIDERS: PCP Student in an Organized Health Care Education/Training Program; Visit Provider Internal Medicine Gastroenterology
DX: R63.4 Abnormal weight loss (principal); K76.89 Other specified diseases of liver; K58.9 Irritable bowel syndrome, unspecified; R10.84 Generalized abdominal pain
CPT/HCPCS: 74183; A9575

== ENCOUNTER 2023-08-04 09:45 | Outpatient (RCR) | payer BC, SELFPAY ==
--- NOTE | 2023-06-22 10:53 | PT.OPEX ---
PT [place] Outpatient Eval PT [facility] Outpatient Eval Start: 04/14/23 07:50 Freq: Status: Active Protocol: Document 06/22/23 07:31 MLS (Rec: 06/22/23 10:50 MLS [id number]) E-signed By Marie Segundo DPT Physical Therapy Outpatient Evaluation Insurance Information Recert Due Date 09/19/23 Insurance Name Medicaid Medical Diagnosis M75. 22 Bicipital tendinitis, right shoulder Treating Diagnosis M25. 511 right shoulder pain, tightness M62. 81 for Muscle weakness ( generalized) Referring MD Judie Sandoval PA-C Subjective Subjective Patient is a 42 year old female who presents to physical therapy with signs and symptoms consistent with right shoulder pain. She reports that she is having pain and range of motion problems on the right side. She states that the pain is sharp in nature and aches as well. She reports that this morning the pain was in the back, along the shoulder blade , sometimes it moves to the front and or side. She reports that she had left shoulder pain in January and she thinks that her right shoulder started hurting from overdoing it because of her left shoulder. She reports that she does not get numbness and tingling into her right arm. She reports that her MS symptoms started in her right arms initially upon diagnosis. She is right-handed. She reports that she does have on and off issues with writing and gripping due to the MS as well. Aggravating factors include reaching, showering, washing/styling hair, and sleeping on right side. Alleviating factors include ice or rest. Significant past medical history includes MS, left shoulder pain and previous hip pain. Patient would like to have less pain and more range of motion through physical therapy sessions. Pain Comments Current: 08/08 Best: 08/08 Worst: 01/08 Current Work Status Unemployed Preferred Name [employer] Precautions Treatment Precautions/Contraindications PMH: under going workup for MS Weight Bearing Status Full Weight Bearing Therapy Limitations/Systems Review Not Limited Objective Other/Pertinent Objective Shoulder range of motion: Flexion: 90 R / 95 L with increased pain Abduction: 40 R/ 70 L with increased pain External rotation: 15 R / 20 L with increased pain with arm at side Internal rotation: 30 R / 35 L with arm at side Manual muscle testing: Shoulder flexion: 3+/5 L , 4-/ 5 R increased pain Shoulder abduction: 3+/5 L , 4 -/5 R increased pain Shoulder external rotation: 3+ /5 L, 4/5 R with increased pain Shoulder internal rotation: 4/ 5 L , 4/5 R Elbow flexion: 4/5 L , 4/5 R with mild increase in pain Elbow extension: 4/5 L , 4/5 R TX: Instructed on twice a day Supine Overhead dowel flexion stretch, 10 sec hold Supine Dowel ER stretch, arm at side, B, 10 sec hold Supine Dowel abduction stretch , 10 sec hold Overhead keisha ER doorway stretch with towel between ribs and elbow Counter flexion and abduction stretch Functional Test Performed & Score Quick dash 36 Assessment Assessment/Impression Pt is a 42 year old female who presents with concerns of right shoulder pain. Patient also has notable objective findings including limited ROM , tenderness to palpation, and decreased strength which are also likely contributing to the problem. Patient is a good candidate for skilled therapy to target deficits described above. Skilled PT intervention is necessary for use of therapeutic exercise manual therapy, neuromuscular re- education, and therapeutic activity. Functional impairments include difficulty with reaching, dressing, showering, washing hair, sleeping, ADLs and exercising. See appropriate sections of PT eval for complete list of goals and POC. D/C plan and criteria is for pt to achieve the goals as listed below or until max rehab potential is met. Pt was agreeable with plan of care and goals established. Primary Functional Limitations Reaching Dressing Showering Washing hair ADLs sleeping Plan of Care Rehabilitation Potential Good Physical Therapy Goals halfway weeks ( 12 weeks 07/06) 1. Patient will demonstrate quick Dash score improvement to 20 or less in order to demonstrate decreased pain and disability related to symptoms 2. Patient will demonstrate independence of with home exercise program with to manage symptoms independently 3. Patient will reports less than 3 sleep disturbances per week related to L shoulder pain. 4. Patient will demonstrate improvement in shoulder MMT to 4/5 with no increase in pain in order to improve tolerance with reaching overhead. 5. Patient will demonstrate R shoulder flexion/abduction ROM greater than 130 degrees in order to improved tolerance with washing hair/dressing/ reaching overhead. Coordination/Communication With Referral Source Treatment Plan/Direct Interventions Joint Mobilization,Manual Therapy,Neuromuscular Re-ed, Therapeutic Activities, Therapeutic Exercises Frequency/Duration 1-2x/week for 10-12 weeks Patient Will Be Discharged From Therapy Completion of LTG(s),Skills Plateau,Independent w/HEP Evaluation Billing Untimed Code Treatment Minutes 20 Complexity Low Certification Information Initial Certification Date 06/22/23 Ending Certification Date 09/19/23 Provider Signature Shows Agreement With POC & Medical Necessity Physician Signature & Date Requested Please Sign/Date Here Physician Comment/Change : Physician NPI Number #
== END 2023-08-26 08:41 | disposition home or self-care (01) ==
PROVIDERS: PCP Student in an Organized Health Care Education/Training Program; Visit Provider Student in an Organized Health Care Education/Training Program
DX: M75.22 Bicipital tendinitis, left shoulder (principal); M75.21 Bicipital tendinitis, right shoulder; M25.512 Pain in left shoulder; M25.511 Pain in right shoulder; M79.604 Pain in right leg; M25.551 Pain in right hip; G35 Multiple sclerosis; M25.612 Stiffness of left shoulder, not elsewhere classified; M62.81 Muscle weakness (generalized); M62.89 Other specified disorders of muscle; Z51.89 Encounter for other specified aftercare
CPT/HCPCS: 97110; 97140; 97161; 97162

== ENCOUNTER 2023-12-21 09:04 | Outpatient (CLI) | payer BC, SELFPAY ==
--- OUTSIDE RECORDS SUMMARY | 2023-12-21 09:08 | XMS_ITS | Encounter Summary ---
Author Organization [facility] Address [address] [place] [address] Care Team Providers Care Adult Neuropsychologist Name Role Phone Jac Guevara MD Unavailable [phone] Judie Sandoval Primary Care Provider Unavailab le Encounter Details Date Type Department Care Team (Latest Contact Info) Description 10/12/2023 Travel Social History Tobacco Use Types Packs/Day Years Used Date Smoking Tobacco: Never Smokeless Tobacco: Never Alcohol Use Standard Drinks/Week Comments Never 0 (1 standard drink = 0.6 oz pur e alcohol) Sex and Gender Information Value Date Recorded Sex Assigned at Not on file Gender Identity Female 06/04/2022 3:40 PM HERITAGE CONSULTANT Sexual Orientation Straight 06/04/2022 3: 40 PM HERITAGE CONSULTANT documented as of this encounter Plan of Treatment Not on file documented as of this encounter Visit Diagnoses Not on filedocumented in this encounter Care Teams Adult Neuropsychologist Relationship Specialty Start Date End Date Judie Sandoval PCP - General 06/02/23 Jac Guevara MD [address] [facility] [address] [place] [address] Internal Medicine 01/01/23 documented as of this encounter
--- OUTSIDE RECORDS SUMMARY | 2023-12-21 09:08 | XMS_ITS | Encounter Summary ---
Author Organization [facility] Address [address] [place] [address] Care Team Providers Care Magazine Writer Name Role Phone Jac Guevara MD Unavailable [phone] Judie Sandoval Primary Care Provider Unavailab le Encounter Details Date Type Department Care Team (Latest Contact Info) Description 10/12/2023 9:30 AM CDT Ancillary Procedure [facility] [address] [place] [address] Abnormal brain MRI; Nerve pain Social History Tobacco Use Types Packs/Day Years Used Date Smoking Tobacco: Never Smokeless Tobacco: Never Alcohol Use Standard Drinks/Week Comments Never 0 (1 standard drink = 0.6 oz pur e alcohol) Sex and Gender Information Value Date Recorded Sex Assigned at Not on file Gender Identity Female 06/04/2022 3:40 PM NIGHTMAN Sexual Orientation Straight 06/04/2022 3: 40 PM NIGHTMAN documented as of this encounter Plan of Treatment Not on file documented as of this encounter Procedures Procedure Name Priority Date/Time Associated Diagnosis Comments EMG 1 EXTREMITY Routine 10/12/2023 10:23 AM CDT Abnormal brain MRI Nerve pain documented in this encounter Results * EMG 1 EXTREMITY (10/12/2023 10:23 AM CDT) Narrative Fredy Otoole MD - 10/12/2023 1:05 PM CDT Table formatting from the original result was not included. Images from the original result were not included. ??[facility] [address] [place] [address] Opt 2 ?Electromyography (EMG) Study Test Date: 10/12/2023 ?? Patient: Natasha Milton ?? : 1980 Body Artist: Liliane Sex: Female Ref Phys: Patricia Fernández MD ?? Location: [facility] ? Patient Symptoms/Indication for EMG: Patient is a 43 year-old who presents with numbness, tingling and weakness of the right lower extremity. Patient states symptoms have been present for about 5 years when she had a back injury. Patient states symptoms are localized in different areas of the lower extremity such at the top of the foot, calf and thigh area. Testing was performed by the [facility]'s EMG equipment and supplies. Temp: RLE 31.0 C ?EMG & NCV findings Sensory: Right sural responses were normal. Motor: Right peroneal and tibial nerves showed normal DML, amplitudes, CVs and F waves. EMG: Right lower ??extremity EMG was normal as shown. ?? Conclusion: Normal EMG and nerve conduction studies of the right ??lower extremity with no evidence of compressive neuropathy, neuropathy or lumbosacral radiculopathies. Electronically Signed By: Fredy Otoole MD Fredy Otoole MD, FAANEM Board Certified Electromyographer Board Certified Neuromuscular diseases specialist Nerve Conduction Studies Anti Sensory Summary Table Stim Site NR Peak (ms) Norm Peak (ms) O-P Amp (??V) Norm O-P Amp Site1 Site2 Dist (cm) Norm Denver (m/s) Right Sural Anti Sensory (Lat Mall) Calf ?3.4 <4.5 16.1 >15 Calf Lat Mall 12.0 ?? Site 2 ?3.4 ??15.0 ? Site 3 ?3.4 ??15.0 ? Motor Summary Table Stim Site NR Onset (ms) Norm Onset (ms) O-P Amp (mV) Norm O-P Amp Site1 Site2 Dist (cm) Denver (m/s) Norm Denver (m/s) Right Peroneal Motor (Ext Dig Brev) Ankle ?3.9 <7.0 4.7 >2 Ankle Knee 43.0 43 >40 Knee ?13.8 ??4.7 ??B Knee Ankle 33.0 43 >40 B Knee ?11.6 ??4.6 ??Knee B Knee 10.0 45 >40 Right Tibial Motor (Abd Lugo Brev) Ankle ?3.9 <7.3 13.1 >4 Knee Ankle 44.0 48 >40 Knee ?13.1 ??9.5 ? F Wave Studies NR F-Lat (ms) Lat Norm (ms) L-R F-Lat (ms) Right Peroneal (Mrkrs) (EDB) ?? 52.19 <56 ?? Right Tibial (Mrkrs) (Abd Hallucis) ?? 50.80 <56 ?? EMG Side Muscle Nerve Root Ins Act Fibs/Pwaves Amp Dur Poly Recrt Fasics Comment Right Med Gastroc Tibial S1-2 Nml 0 Nml Nml Nml Nml 0 ?? Right AntTibialis Dp Br Peron L4-5 Nml 0 Nml Nml Nml Nml 0 ?? Right BicepsFemS Sciatic L5-S1 Nml 0 Nml Nml Nml Nml 0 ?? Right PostTibialis Tibial L5, S1 Nml 0 Nml Nml Nml Nml 0 ?? Right Peroneus Long Sup Br Peron L5-S1 Nml 0 Nml Nml Nml Nml 0 ?? Right VastusMed Femoral L2-4 Nml 0 Nml Nml Nml Nml 0 ?? Right ExtHallLong Dp Br Peron L5, S1 Nml 0 Nml Nml Nml Nml 0 ?? Right GluteusMed SupGluteal L5-S1 Nml 0 Nml Nml Nml Nml 0 ?? Right S1 Parasp Rami S1 Nml 0 ? 0 ?? Right L5 Parasp Rami L5 Nml 0 ? 0 ?? Waveforms: ? Patricia Fernández MD EMG ORDERABLE documented in this encounter Visit Diagnoses Diagnosis Abnormal brain MRI Nonspecific (abnormal) findings on radiological and other examination of skull and head Nerve pain Neuralgia, neuritis, and radiculitis, unspecified documented in this encounter Care Teams Magazine Writer Relationship Specialty Start Date End Date Judie Sandoval PCP - General 06/02/23 Jac Guevara MD [address] [facility] [address] [place] [address] Internal Medicine 01/01/23 documented as of this encounter
--- OUTSIDE RECORDS SUMMARY | 2023-12-21 09:08 | XMS_ITS | Clinical Summary ---
Author Organization [facility] Address [address] [place] [id number] Care Team Providers Care Franchise Business Consultant Name Role Phone Jac Guevara MD Unavailable [phone] Judie Sandoval Primary Care Provider Unavailab le Allergies Active Allergy Reactions Criticality Noted Date Comments Acetaminophen Vomiting 07/04/2022 [place] 07/04/2022 Gluten 07/04/2022 Milk Containing Products (Dairy) 09/10/2023 Penicillins Unknown,Other 04/28/2022 Family history Potato 09/10/2023 Medications Medication Sig Dispensed Refills Start Date End Date Status MAGNESIUM GLYCEROPHOSPHATE by [facility].(Non-Drug; Combo Route) route. Active cholecalciferol, vitamin D3, 25 mcg, 1000 unit, 25 mcg (1,000 unit) oral tablet Take 1 tablet (25 mcg) by mouth once daily. Active baclofen (LIORESAL) 10 mg oral tabletIndications:Mult iple sclerosis (HCC) Take 1/2 tablet twice daily as needed for muscle cramping. 30 tablet 3 01/01/2023 Active methylPREDNISolone (MEDROL DOSPAK) 4 mg oral dospak Take 1 pack as prescribed 1 tablet 01/01/2023 Active Active Problems No known active problems Encounters Date Type Department Care Team Description 10/12/2023 9:30 AM CDT Ancillary Procedure [facility] [address] [place] [address] Abnormal brain MRI; Nerve pain 10/12/2023 Travel from Last 3 Months Immunizations Name Administration Dates Next Due SPIKEVAX (Moderna) 12+ Yrs M ONOVALENT COVID Vaccine 08/27/2021,02/01/2021,01/04/2021 Td 08/10/2023 Family History Medical History Relation Comments Alcohol [...] file Gender Identity Female 06/04/2022 3:40 PM REVENUE AGENT Sexual Orientation Straight 06/04/2022 3: 40 PM REVENUE AGENT Last Filed Vital Signs Vital Sign Reading [...] Health Maintenance Due Date Last Done Comments Lipid Screening 1980 Mammogram Screening 1980 Pap Smear 1980 Anxiety Screening (TINO-2) 09/30/1980 Depression Assessment (PHQ-2) 09/30/1980 COVID-19 Vaccine (2022-2 4 season) 2023 08/27/2021, 02/01/2021, 01/04/2021 Influenza Vaccine (#1) 2024 Adult Tetanus Booster 08/09/2033 08/10/2023 Hepatitis C Screening Completed 05/20/2022 Pneumococcal <65 Aged Out No longer e ligible based on patient's age to complete this topic Procedures Procedure Name Priority Date/Time Associated Diagnosis Comments EMG 1 EXTREMITY Routine 10/12/2023 10:23 AM CDT Abnormal brain MRI Nerve pain from Last 3 Months Results * EMG 1 EXTREMITY (10/12/2023 10:23 AM CDT) Narrative Fredy Otoole MD - 10/12/2023 1:05 PM CDT Table formatting from the original result was not included. Images from the original result were not included. ??[facility] [address] [place] [address] Opt 2 ?Electromyography (EMG) Study Test Date: 10/12/2023 ?? Patient: Natasha Milton ?? : 1980 Senior Python Developer: Liliane Sex: Female Ref Phys: Patricia Fernández MD ?? Location: [place] ? Patient Symptoms/Indication for EMG: Patient is [...] thigh area. Testing was performed by the [facility]'s EMG equipment and supplies. [...] Norm O-P Amp Site1 Site2 Dist (cm) Dnever (m/s) Norm [place] (m/s) Right Peroneal Motor [...] Waveforms: ? Patricia Fernández MD EMG ORDERABLE from Last 3 Months Care Teams Franchise Business Consultant Relationship Specialty Start Date End Date Judie Sandoval PCP - General 06/02/23 Jac Guevara MD [id number] [facility] [address] [place] [address] Internal Medicine 01/01/23
--- OUTSIDE RECORDS SUMMARY | 2023-12-21 09:08 | XMS_ITS | Clinical Summary ---
Author Organization [facility] Address [place], [place] [address] Care Team Providers Care Minute Clerk For Basic Traffic Name Role Phone Judie Sandoval Primary Care Provider [phone] Katey Aranda Unavailable Allergies Active Allergy Reactions Criticality Noted Date Comments Acetaminophen Vomiting 07/04/2022 Penicillins *Unknown 04/28/2022 Family history Medications Medication Sig Dispensed Refills Start Date End Date Status Graduated Compression StockingsIndicati ons:Varicose veins of left lower extremity with pain For personal use. Length: calf Strength: 16-20 mmHg Circumference in cm: please measure patient in store 1 Packet 10/14/2023 Active durable medical equipment (DME)Indications: Generalized weakness,Arthralg ia, unspecified joint,Chronic fatigue Shower safety bar 1 Each 10/21/2023 Active baclofen (LIORESAL) 10 mg tablet PRN 01/01/2023 Active methylPREDNISolon e (MEDROL DOSEPAK) 4 mg tablet PRN 01/01/2023 Active medication order composerIndicatio ns:Depression, unspecified depression type NOW liquid Vitamin D3 5000 IU: Daily w/ food Country life Magnesium glycinate 400m AM, 2 PM (total of ~530 mg) Flax oil: Occasionally, goal 1 TBS Daily 11/26/2023 Active metroNIDAZOLE (FLAGYL) 500 mg tabletIndications :BV (bacterial vaginosis) Take 1 Tablet (500 mg) by mouth two times daily for 7 days. 14 Tablet 12/18/2023 Active medication order composerIndicatio ns:Depression, unspecified depression type NOW liquid Vitamin D3 2000IU: Daily Country life Magnesium glycinate 400m AM, 2 PM (total of 400 mg) Flax oil: Occasionally, goal 1 TBS Daily 11/03/2023 4 Discontinue d(*Medicati on adjustment) lactulose 10 gram/15 mL solutionIndicatio ns:Bloating Take 15 mL (10 g) by mouth once daily. 15 mL 11/03/2023 4 Discontinue d(*Med complete/Re gimen complete/Le ila of care change) Active Problems Problem Noted Date Diagnosed Date MS (multiple sclerosis) 08/10/2023 Vitamin D deficiency 08/26/2022 Encounters Date Type Department Care Team Description 12/16/2023 2:25 PM CDT Office Visit [facility] [address] [place] [address] Judie Sandoval PA Vaginal Problem (itching and burning /no odor ) 12/16/2023 Travel 12/15/2023 Telephone [facility] [address] [place] [address] Judie Sandoval PA Concerns (BV) 12/10/2023 Patient Outreach [facility] [address] [place] [address] Katey Aranda Care Coordination (UPDATE PER INSTALLMENT DEALER/) 12/08/2023 8:15 AM CDT Telemedicine [facility] [address] [place] [address] Yana Meier, PhD, LP Phone Visit 12/08/2023 Travel 12/07/2023 Telephone [facility] [address] [place] [address] Judie Sandoval PA Appointment (Dr Stephanie Hutton) 12/07/2023 Nurse Triage [facility] [address] [place] [address] Joanna Crowder PA Medication Reaction (possibly due to Vit C) 11/26/2023 11:00 AM CDT Telemedicine [facility] [address] [place] [address] Joanna Crowder PA Follow Up; Telehealth 11/26/2023 Travel 11/24/2023 Telephone [facility] [address] [place] [address] Joanna Crowder PA Results 11/20/2023 7:15 AM CDT Orders Only [facility] [address] [place] [address] Lab, [place] [facility] 11/20/2023 Travel 11/17/2023 Orders Only [facility] Staff, Other Clinical 1 scan: (1-Ord) BREATH TEST, 11/17/2023 11/16/2023 Patient Outreach [facility] [address] [place] [address] Katey Aranda Care Coordination (UPDATE PER INSTALLMENT DEALER/) 11/12/2023 Orders Only [facility] [address] [place] [address] Judie Sandoval PA Outside Order (Ordered by Yao Ventura) 11/04/2023 1:00 PM CDT Telemedicine [facility] [address] [place] [address] Yana Meier, PhD, LP Telehealth 11/04/2023 Travel 11/03/2023 10:00 AM CDT Telemedicine [facility] [address] [place] [phone] Joanna Crowder PA Telehealth; Consult (Referred, Depression, Vitamin D, neurological issues) 11/03/2023 Telephone [facility] [address] [place] [address] Joanna Crowder PA Lab ([facility]) 11/02/2023 Telephone [facility] [address] [place] [address] Judie Sandoval PA Questions 10/30/2023 Travel 10/20/2023 9:00 AM CDT Telemedicine [facility] [address] [place] [address] Yana Meier, PhD, LP Telehealth 10/20/2023 Travel 10/15/2023 Patient Outreach [facility] Care [facility] - [facility] [address] [place] [address] Katey Aranda Care Coordination (UPDATE PER INSTALLMENT DEALER/) 10/14/2023 7:00 AM CDT Office Visit [facility] [address] [place] [address] Judie Sandoval PA Form (Handicap parking form- walking long distances can get tiring. ); Follow Up (Right shoulder- still bothering her ) 10/14/2023 Telephone [facility] [address] [place] [address] Judie Sandoval PA Questions (safety bar) 10/14/2023 Travel 10/09/2023 Travel 09/30/2023 1:00 PM CDT Telemedicine [facility] [address] [place] [address] Yana Meier, PhD, LP Telehealth 09/30/2023 Travel from Last 3 Months Immunizations Name Administration Dates Next Due COVID-19 vaccine (Moderna 10 0mcg/0.5mL) PF, MDV 08/27/2021,02/01/2021,01/04/2021 Td (Age >=7 Years) 08/10/2023 Social History Tobacco Use Types Packs/Day Years Used Date Smoking Tobacco: Never Smokeless Tobacco: Never Tobacco Cessation:Counseling Given: Yes Alcohol Use Standard Drinks/Week Comments Not Currently 0 (1 standard drink = 0.6 oz pur e alcohol) PHQ-2 Answer Date Recorded PHQ-2 TOTAL SCORE 5 11/04/2023 Social Connections Answer Date Recorded Frequency of Communication with Friends and Fami ly 0 12/16/2023 Financial Resource Strain Answer Date R ecorded Difficulty of Paying Living Expenses 3 12/16/2023 Difficulty of Paying Living Expenses Not on file 12/16/2023 Food Insecurity Answer Date Recorded Worried About Running Out of Food in the Last Ye ar 1 12/16/2023 Transportation Needs Answer Date Record ed Lack of Transportation (Medical) 1 12/16/2023 Housing Stability Answer Date Recorded Unable to Pay for Housing in the Last Year 1 12/16/2023 Sex and Gender Information Value Date Recorded Sex Assigned at Not on file Gender Identity Not on file Sexual Orientation Not on file Obstetrics History Last Filed Vital Signs Vital Sign Reading Time Taken Comments Blood Pressure 123/83 12/16/2023 2:20 PM CDT Pulse 103 12/16/2023 2:20 PM CDT Temperature 37.8 ??C (100 ??F) 04/28/2022 8:30 AM SDV PILOT/NAVIGATOR/DDS OPERATOR Respiratory Rate 12 06/23/2022 11:00 AM SDV PILOT/NAVIGATOR/DDS OPERATOR Oxygen Saturation 98% 12/16/2023 2:20 PM CDT Inhaled Oxygen Concentration - - Weight 54 kg (119 lb) 12/16/2023 2:20 PM CDT Height 176.9 cm (5' 9.65) 08/10/2023 8:23 AM CD T Body Mass Index 17.25 08/10/2023 8:23 AM CDT Plan of Treatment Upcoming Encounters Date Type Department Care Team (Late st Contact Info) Description 12/22/2023 8:15 AM CDT Telemedicine [address] [address] Yana Meier, PhD, LP [address] [address] 12/28/2023 8:40 AM CDT Office Visit [facility] [address] [place] [address] Judie Sandoval PA [address] [place] [address] 01/05/2024 9:00 AM CDT Telemedicine [place] [address] [place] [address] Yana Meier, PhD, LP [address] [address] 01/19/2024 9:00 AM CDT Telemedicine [facility] [address] [place] [address] Yana Meier, PhD, LP [address] [facility] [address] [place] [address] 01/21/2024 9:00 AM CDT Telemedicine [facility] [address] [place] [phone] Joanna Crowder PA [address] [place] [address] Health Maintenance Due Date Last Done Comments Tdap 09/30/1990 Pap test for age 21-65 09/30/2000 COVID-19 vaccine series ( season) 2023 08/27/2021, 02/01/2021, 01/04/2021 Influenza for age 9-49 01/31/2024 BMI (ht and wt on same day) for age 18+ 08/09/2024 08/10/2023, 12/22/2022, 06/04/2022, Additional history exists Depression screening for age 12+ 11/03/2024 11/04/2023, 10/20/2023, 10/14/2023, Additional history exists Tetanus booster 08/09/2033 08/10/2023 HIV for age 15-65 Completed 05/20/2022 Hepatitis C screening for age 18-79 Completed 05/20/2022 Pneumococcal series for age 6-64 Aged Out No longer eligible based on patient's age to complete this topic Procedures Procedure Name Priority Date/Time Associated Diagnosis Comments TRICHOMONAS, CANDICE, AND BACTERIAL VAGINOSIS BY GAMALIEL Routine 12/16/2023 2:45 PM CDT Vaginal itching ALDOLASE Routine 11/20/2023 7:19 AM CDT Positive DENA (antinuclear antibody) Neurologic disorder Neuropathy ANCA PANEL FOR VASCULITIS Routine 11/20/2023 7:19 AM CDT Positive DENA (antinuclear antibody) Neurologic disorder Neuropathy CK TOTAL Routine 11/20/2023 7:19 AM CDT Positive DENA (antinuclear antibody) Neurologic disorder Neuropathy THYROPEROXIDASE ANTIBODY Routine 11/20/2023 7:19 AM CDT Fatigue, unspecified type TSH Routine 11/20/2023 7:19 AM CDT Fatigue, unspecified type T4,FREE Routine 11/20/2023 7:19 AM CDT Fatigue, unspecified type T3,FREE Routine 11/20/2023 7:19 AM CDT Fatigue, unspecified type VITAMIN B6 BLOOD Routine 11/20/2023 7:19 AM CDT Fatigue, unspecified type FOLIC ACID Routine 11/20/2023 7:19 AM CDT Fatigue, unspecified type VITAMIN B12 Routine 11/20/2023 7:19 AM CDT Fatigue, unspecified type VITAMIN D 25 (DEFICIENCY) Routine 11/20/2023 7:19 AM CDT Vitamin D deficiency Fatigue, unspecified type IRON PLUS IRON BINDING CAP Routine 11/20/2023 7:19 AM CDT Fatigue, unspecified type FERRITIN Routine 11/20/2023 7:19 AM CDT Fatigue, unspecified type SCAN-DIAGNOSTIC REPORT 12:00 AM CDT ANTI HIV 1/2 Routine 05/20/2022 8:42 AM SDV PILOT/NAVIGATOR/DDS OPERATOR Encounter for screening for HIV ANTI HCV Routine 05/20/2022 8:42 AM SDV PILOT/NAVIGATOR/DDS OPERATOR Encounter for hepatitis C screening test for low risk patient from Last 3 Months or Most Recently Relevant to Health Maintenance Results * (ABNORMAL) TRICHOMONAS, CANDICE, AND BACTERIAL VAGINOSIS BY GAMALIEL (12/16/2023 2:45 PM CDT) Pathologist [facility] CANDICE SPECIES Negative Negative 10:04 AM CDT [facility] CANDICE GLABRATA Negative Negative 12/17/2023 10:04 AM CDT [facility] TRICHOMONAS VVA Negative Negative 10:04 AM CDT [facility] BACTERIAL VAGINOSIS Positive(A) Negative 12/17/2023 10:04 AM CDT [facility] Other VAGINAL SWAB / Unknown Non-Blood / Unknown 12/16/2023 2:45 PM CDT 12/16/2023 3:04 PM CDT Judie BUSH MICROBIOLOGY [facility] [address] [place] [address], * VITAMIN B6 BLOOD (11/20/2023 7:19 AM CDT) Pathologist [facility] Vitamin B6 17.1 3.4 - 65.2 ug/L 11/23/2023 11:[address] [facility] ([facility]) Comment: ? Deficiency: ? <3.4 ? Marginal: ?3.4 - 5.1 ? Adequate: ? >5.1 Blood BLOOD SPECIMEN / Unknown Venipuncture / Unknown 11/20/2023 7:19 AM CDT 11/20/2023 7:20 AM CDT Narrative [facility] ([facility]) - 11/23/2023 11:08 AM CDT Test(s) [id number] was developed and its performance characteristics determined by [facility]. It has not been cleared or approved by the Food and Drug Administration. Performed at: ??[address] ??[id number] Net Developer Software Engineer C: Alivia Yeung MD, Phone: ??[phone] Joanna BUSH CHEMISTRY Performing Organization Address [facility] Co de Phone Number [facility] ([facility]) [address] [place] [address], * ALDOLASE (11/20/2023 7:19 AM CDT) [facility] Aldolase 4.0 3.3 - 10.3 U/L 11/21/2023 9:[address] [facility] ([facility]) Blood BLOOD SPECIMEN / Unknown Venipuncture / Unknown 11/20/2023 7:19 AM CDT 11/20/2023 7:20 AM CDT Narrative [facility] ([facility]) - 11/21/2023 9:06 PM CDT Performed at: ??[address] ??[id number] Net Developer Software Engineer C: Alivia Yeung MD, Phone: ??[phone] Judie BUSH SEND OUTS Performing Organization Address [facility] Co de Phone Number [facility] ([facility]) [address] [place] [address], * VITAMIN D 25 (DEFICIENCY) (11/20/2023 7:19 AM CDT) [facility] VITAMIN D TOTAL 38.2 20.0 - 80.0 ng/mL 11/20/2023 2:33 PM CDT [facility] Blood BLOOD SPECIMEN / Unknown Venipuncture / Unknown 11/20/2023 7:19 AM CDT 11/20/2023 7:20 AM CDT Narrative [facility] - 11/20/2023 2:33 PM CDT ? Vitamin D Status Deficiency: ? <20 ng/mL Insufficiency: ?20-29 ng/mL Sufficiency: ?30-80 ng/mL Possible Toxicity: ??>80 ng/mL Based on [place] of Medicine recommendations Biotin supplements may cause clinically significant interference for this test assay. ??If interference is suspected, it is strongly recommended that biotin is discontinued for at least one week prior to retesting. Joanna BUSH SEND OUTS Performing Organization Address [facility] Co de Phone Number [facility] [address] [place] [address], * TSH (11/20/2023 7:19 AM CDT) TSH 1.52 0.27 - 4.20 uIU/mL 11/20/2023 2:33 PM CDT [facility] Blood BLOOD SPECIMEN / Unknown Venipuncture / Unknown 11/20/2023 7:19 AM CDT 11/20/2023 7:20 AM CDT [facility] - 11/20/2023 2:33 PM CDT In Adults, TSH values between 5.00 and 10.00 uIU/ml do not necessarily indicate the presence of Hypothyroidism. Correlation with clinical findings such as presence of goiter and/or Thyroperoxidase (TPO) Antibody may be helpful. For more information please refer to LUDIN 2004; 291: 228-238. Joanna BUSH CHEMISTRY Performing Organization Address [facility] Co de Phone Number [facility] [address] [place] [address], * ANCA PANEL FOR VASCULITIS (11/20/2023 7:19 AM CDT) ANCA Negative Negative 11/24/2023 1:43 PM CDT [facility] Blood BLOOD SPECIMEN / Unknown Venipuncture / Unknown 11/20/2023 7:19 AM CDT 11/20/2023 7:20 AM CDT Judie BUSH SEND OUTS Performing Organization Address [facility] Co de Phone Number [facility] [address] [place] [address], [place] * (ABNORMAL) IRON PLUS IRON BINDING CAP (11/20/2023 7:19 AM CDT) IRON 92 37 - 145 ug/dL 11/20/2023 2:37 PM CDT [facility] UIBC (UNSATURATED) 321 112 - 347 ug/dL 11/20/2023 2:37 PM CDT [facility] IRON BINDING CAPACITY 413(H) 250 - 400 ug/dL 11/20/2023 2:37 PM CDT [facility] IRON,% SATURATION 22 14 - 50 % 11/20/2023 2:37 PM CDT [facility] Blood BLOOD SPECIMEN / Unknown Venipuncture / Unknown 11/20/2023 7:19 AM CDT 11/20/2023 7:20 AM CDT Joanna BUSH CHEMISTRY Performing Organization Address [facility] Co de Phone Number [facility] [address] [place], [place] [id number], [place] * THYROPEROXIDASE ANTIBODY (11/20/2023 7:19 AM CDT) THYROPEROXIDASE CARLA <9.00 <34.00 IU/mL 11/20/2023 2:38 PM CDT [facility] Blood BLOOD SPECIMEN / Unknown Venipuncture / Unknown 11/20/2023 7:19 AM CDT 11/20/2023 7:20 AM CDT Narrative [facility] - 11/20/2023 2:38 PM CDT Biotin supplements may cause clinically significant interference for this test assay. ??If interference is suspected, it is strongly recommended that biotin is discontinued for at least one week prior to retesting. Joanna BUSH SEND OUTS Performing Organization Address [facility] Co de Phone Number [facility] [address] [place] [address], * T3,FREE (11/20/2023 7:19 AM CDT) T3,FREE 3.51 2.00 - 4.40 pg/mL 11/20/2023 2:33 PM CDT [facility] Blood BLOOD SPECIMEN / Unknown Venipuncture / Unknown 11/20/2023 7:19 AM CDT 11/20/2023 7:20 AM CDT Joanna BUSH CHEMISTRY Performing Organization Address [facility] Phone Number [facility] [address] [place] [address], [place] * T4,FREE (11/20/2023 7:19 AM CDT) T4,FREE 1.30 0.93 - 1.70 ng/dL 11/20/2023 2:33 PM CDT [facility] Blood BLOOD SPECIMEN / Unknown Venipuncture / Unknown 11/20/2023 7:19 AM CDT 11/20/2023 7:20 AM CDT Joanna BUSH CHEMISTRY Performing Organization Address [facility] de Phone Number [facility] [address] [place] [address], [place] * FOLIC ACID (11/20/2023 7:19 AM CDT) FOLIC ACID 12.3 4.6 - 34.8 ng/mL 11/20/2023 2:33 PM CDT [facility] Blood BLOOD SPECIMEN / Unknown Venipuncture / Unknown 11/20/2023 7:19 AM CDT 11/20/2023 7:20 AM CDT Narrative [facility] - 11/20/2023 2:33 PM CDT Biotin supplements may cause clinically significant interference for this test assay. ??If interference is suspected, it is strongly recommended that biotin is discontinued for at least one week prior to retesting. Joanna BUSH CHEMISTRY Performing Organization Address [facility] Co de Phone Number [facility] [address] [address], [place] * FERRITIN (11/20/2023 7:19 AM CDT) FERRITIN 17.4 15.0 - 150.0 ng/mL 11/20/2023 4:10 PM CDT [facility] Blood BLOOD SPECIMEN / Unknown Venipuncture / Unknown 11/20/2023 7:19 AM CDT 11/20/2023 7:20 AM CDT Joanna BUSH CHEMISTRY Performing Organization Address [facility] de Phone Number [facility] [address] [place] [address], [place] * VITAMIN B12 (11/20/2023 7:19 AM CDT) VITAMIN B12 643 232 - 1,245 pg/mL 11/20/2023 2:33 PM CDT [facility] Blood BLOOD SPECIMEN / Unknown Venipuncture / Unknown 11/20/2023 7:19 AM CDT 11/20/2023 7:20 AM CDT Narrative [facility] - 11/20/2023 2:33 PM CDT Biotin supplements may cause clinically significant interference for this test assay. ??If interference is suspected, it is strongly recommended that biotin is discontinued for at least one week prior to retesting. Joanna BUSH CHEMISTRY Performing Organization Address [facility] Co de Phone Number [facility] [address] [place] [address], [place] * CK TOTAL (11/20/2023 7:19 AM CDT) Pathologist [facility] CK,TOTAL 46 26 - 192 IU/L 11/20/2023 2:[address] [facility] Blood BLOOD SPECIMEN / Unknown Venipuncture / Unknown 11/20/2023 7:19 AM CDT 11/20/2023 7:20 AM CDT Judie BUSH CHEMISTRY [facility] [address] [place] [address], * SCAN-DIAGNOSTIC REPORT (11/17/2023 12:00 AM CDT) Narrative 11/17/2023 12:00 AM CDT Ordered by an unspecified provider. Other Clinical Staff OTHER * ANTI HCV (05/20/2022 8:42 AM SDV PILOT/NAVIGATOR/DDS OPERATOR) [facility] HEPATITIS C ANTIBODY Non-React myrna Non-React myrna 05/22/2022 1:28 AM SDV PILOT/NAVIGATOR/DDS OPERATOR [facility] Comment:Antibodies to HCV no t detected; does not exclude the possibility of exposure to HCV. Blood BLOOD SPECIMEN / Unknown Venipuncture / Unknown 05/20/2022 8:42 AM SDV PILOT/NAVIGATOR/DDS OPERATOR 05/20/2022 8:44 AM SDV PILOT/NAVIGATOR/DDS OPERATOR Judie BUSH SEND OUTS Performing Organization Address City/[facility]/ZIP Co de Phone Number [facility] [address] [place] [address], * ANTI HIV 1/2 (05/20/2022 8:42 AM SDV PILOT/NAVIGATOR/DDS OPERATOR) [facility] HIV-1/HIV-2 ANTIBODY Non-Reacti ve Non-Reacti ve 05/22/2022 1:30 AM SDV PILOT/NAVIGATOR/DDS OPERATOR [facility] Comment:HIV-1 p24 and HIV-1/ HIV-2 Ab not detected. Blood BLOOD SPECIMEN / Unknown Venipuncture / Unknown 05/20/2022 8:42 AM SDV PILOT/NAVIGATOR/DDS OPERATOR 05/20/2022 8:44 AM SDV PILOT/NAVIGATOR/DDS OPERATOR Judie BUSH SEND OUTS [facility] [address] [place] [address], from Last 3 Months or Most Recently Relevant to Health Maintenance Advance Directives Documents on File Type Date Recorded Patient Feeder Driver Expl anation Healthcare Directive 04/27/2022 022 Care Teams Minute Clerk For Basic Traffic Relationship Specialty Start Date End Date Judie [place] [address] PCP - General Physician Site Foreman 05/06/22 Katey Aranda [address] [place] [address] Mental Health Real Estate Job Titles Care Guide 09/21/23 Jb Cruz Practice Management Consultant 09/22/23
--- OUTSIDE RECORDS SUMMARY | 2023-12-21 09:08 | XMS_ITS | Referral Summary ---
Author Organization [facility] Address [address] [place] [address] Care Team Providers Care Sustainable Communities Designer Name Role Phone Jac Guevara MD Unavailable [phone] Judie Sandoval Primary Care Provider Unavailab le Encounters Date Type Department Care Team Description 10/12/2023 Travel 10/12/2023 9:30 AM CDT Ancillary Procedure [facility] - [address] [place] [address] Abnormal brain MRI; Nerve pain from Last 3 Months Allergies Active Allergy Reactions Criticality Noted Date Comments Acetaminophen Vomiting 07/04/2022 Farina 07/04/2022 Gluten 07/04/2022 Milk Containing Products (Dairy) 09/10/2023 Penicillins Unknown,Other 04/28/2022 Family history Potato 09/10/2023 Medications Medication Sig Dispensed Refills Start Date End Date Status MAGNESIUM GL[place]CER[place]PH[place] [facility]Non-Drug; Combo Route) route. Active cholecalciferol, vitamin D3, [...] M ONOVALENT COVID Vaccine 08/27/2021,02/01/2021,01/04/2021 Td 08/10/2023 Social History Tobacco Use Types Packs/Day Years Used Date Smoking Tobacco: Never Smokeless Tobacco: Never Alcohol Use Standard Drinks/Week Comments Never 0 (1 standard drink = 0.6 oz pur e alcohol) Sex and Gender Information Value Date Recorded Sex Assigned at Not on file Gender Identity Female 06/04/2022 3:40 PM RESTAURANT ASSISTANT MANAGER Sexual Orientation Straight 06/04/2022 3: 40 PM RESTAURANT ASSISTANT MANAGER Last Filed Vital Signs Vital Sign Reading [...] CDT Plan of Treatment Not on file Procedures Procedure Name Priority Date/Time Associated Diagnosis Comments EMG 1 EXTREMITY Routine 10/12/2023 10:23 AM CDT Abnormal brain MRI Nerve pain from Last 3 Months Results * EMG 1 EXTREMITY (10/12/2023 10:23 AM CDT) Narrative Fredy Otoole MD - 10/12/2023 1:05 PM CDT Table formatting from the original result was not included. Images from the original result were not included. ??[facility] [address] [place] [address] Opt 2 ?Electromyography (EMG) Study Test Date: 10/12/2023 ?? Patient: Natasha Milton ?? : 1980 Clinical Sociologist: Liliane Sex: Female Ref Phys: Patricia Fernández MD ?? Location: [place] ? Patient Symptoms/Indication for EMG: Patient is [...] thigh area. Testing was performed by the [facility]'s EMG equipment and supplies. Temp: [...] ORDERABLE from Last 3 Months Care Teams Sustainable Communities Designer Relationship Specialty Start Date End Date Judie Sandoval PCP - General 06/02/23 Jac Guevara MD [id number] [facility] [address] [place] [address] Internal Medicine 01/01/23
--- NOTE | 2023-12-21 09:15 | MR_ITS ---
[address] [address] Phone:?[phone] Fax:?[phone] Referring Physician Information: Patricia Fernández M.D. [address] [facility] [address] Phone:?[phone] Fax:?[phone] Patient:Edith Milton D.O.B:?1980 Sex:?Female Phone:?[phone] [facility] MRN:?[id number] Exam Date:?12/21/2023 EXAM: MRI of the RIGHT SHOULDER, without contrast CLINICAL INFORMATION: Female, 43 years old, with right shoulder pain. INDICATION: Evaluate for adhesive capsulitis. PRIOR SURGERY: None reported. PLAIN FILMS: None available. COMPARISONS: No prior MRIs available. TECHNICAL INFORMATION: Using a 1.5T MR scanner and a localizing surface coil: coronal obliques: PD, T1, T2, STIR sagittal obliques: PD, T2 axials: PD, T2, STIR SEDATION: None CONTRAST: None FINDINGS: Bones: Proximal humerus: No fracture or marrow edema/pathology. No humeral Hill-Sachs or reverse Hill-Sachs lesion/impaction or contusion. Glenoid: No fracture or marrow edema/pathology. No osseous Bankart lesion. Rotator cuff and muscles/tendons: Supraspinatus: Minimal supraspinatus tendinopathy, without tear or muscle atrophy. Infraspinatus: No tendinopathy, tear or atrophy. Teres minor: No tendinopathy, tear or atrophy. Subscapularis: No tendinopathy, tear or atrophy. Deltoid: No strain or atrophy. Coracoacromial arch: Acromion morphology: The acromion has type II morphology. No discrete subacromial osseous spur or os acromiale. Acromiohumeral space: The acromiohumeral space measures 4.9 mm at its narrowest point (osseous distance). Coracohumeral space: The coracohumeral space is within normal limits. Acromioclavicular joint: Joint: No acute injury, arthropathy, or inferior hypertrophy. Ligaments: Coracoclavicular ligaments are intact. Bursae: Subacromial-subdeltoid: Mild subacromial-subdeltoid bursitis. Subcoracoid: No convincing subcoracoid bursal thickening/bursitis. Biceps tendon: The long head of the biceps tendon is present within the bicipital groove. The intra-articular and extra-articular segments are intact without tendinosis, tenosynovitis, or displacement. Glenohumeral joint: Effusion/cyst: No significant glenohumeral joint effusion. Articular cartilage: Humeral head: No osteochondral abnormalities. Glenoid: No osteochondral abnormalities. Loose bodies: No discrete intra-articular body within the joint. Labrum:?Intrasubstance degeneration and partial tearing is present throughout the superior labrum over a length of 1.7 cm (coronal PD series 5 images 14-18). The labrum otherwise appears to be intact on this non-arthrographic study. No paralabral cyst. Inferior glenohumeral ligament/axillary pouch:?Mild thickening of inferior capsuloligamentous structures (coronal PD series 5 images 16-19). Additionally, there is soft tissue thickening throughout the rotator interval (sagittal T2 series 8 images 9-13) IMPRESSION: 1. Intrasubstance degeneration and partial tearing of the superior labrum measuring 1.7 cm. No paralabral cyst. 2. Mild findings in keeping with any clinical symptoms of adhesive capsulitis. 3. Minimal supraspinatus tendinopathy. No rotator cuff tendon tear. 4. Mild narrowing of the acromiohumeral space with mild subacromial-subdeltoid bursitis. However, there is no AC joint arthropathy or evidence of impingement at the AC joint. 5. No tendinopathy, displacement, or tear of the biceps long head tendon. 6. No full-thickness chondral defect or evidence of glenohumeral joint osteoarthritis. BC Electronically signed on 12/21/2023 12:46:00 PM by Rhett Hubbard M.D.
--- NOTE | 2023-12-21 10:00 | CRLHL7_ITS ---
For Patients: As a result of the Cures Act, medical imaging exams and procedure reports are released immediately into your electronic medical record. You may view this report before your referring provider. If you have questions, please contact your health care provider. Indication: Prior abnormal brain MRI. Technique: Multisequence multiplanar MRI of the brain prior to and following administration of 10 cc Dotarem gadolinium based intravenous contrast. Demyelination protocol was utilized. Comparison: MRI brain dated 01/13/2023. Findings: No interval change in multiple foci periventricular and juxtacortical T2 prolongation within supratentorial white matter of both cerebral hemispheres. Unchanged focal signal abnormality involving the genu corpus callosum. No convincing infratentorial signal abnormality. Unchanged tiny focus of linear contrast enhancement right basal ganglia (series 8, image 23) which is favored to be vascular in etiology. No evidence of acute ischemia or ventricular obstruction. No significant cerebral atrophy or T1 hypointense lesion load. Flow voids of the larger intracranial arteries are preserved. Bone marrow signal intensity of the calvarium is within normal limits. The orbits are unremarkable. The paranasal sinuses and mastoid air cells are predominantly clear. Impression: 1. No acute intracranial abnormality. 2. Similar mild supratentorial white matter signal abnormality, nonspecific, but consistent with chronic demyelinating plaques in the appropriate clinical context. 3. No new T2 hyperintense or enhancing lesion. 4. Unchanged tiny focus of linear enhancement in the right basal ganglia which is likely vascular in etiology. 5. No significant T1 hypointense lesion load or cerebral atrophy. Dictated by Anderson Petty MD @ 12/22/2023 10:34:18 AM (Electronically Signed)
== END 2023-12-21 09:05 | disposition home or self-care (01) ==
PROVIDERS: PCP Student in an Organized Health Care Education/Training Program; Visit Provider Psychiatry & Neurology Neurology
DX: M25.511 Pain in right shoulder (principal); S43.431A Superior glenoid labrum lesion of right shoulder, initial encounter; M75.01 Adhesive capsulitis of right shoulder; M75.51 Bursitis of right shoulder; R94.8 Abnormal results of function studies of other organs and systems
CPT/HCPCS: 70553; 73221; A9575

== ENCOUNTER 2024-11-09 09:15 | Day surgery (SDC) | payer MEDICARE, MEDICAID, SELFPAY ==
[2024-11-09] MEDS: LACTATED RINGERS 500 ML 500 ML 100 ML IV (09:30)
[2024-11-09 09:32] VITALS: BMI 17.1
[2024-11-09 09:41] LABS: Ur HCG Qualitative* Negative (Negative)
[2024-11-09 09:42] VITALS: BP 109/81; PULSE 111; RESP 18; TEMP 36.7; O2SAT 100
[2024-11-09] MEDS: SODIUM CHLORIDE 0.9 % (FLUSH) 10 ML SYRINGE IVF (09:47)
--- NOTE | 2024-11-09 11:10 | P.ANES_ITS ---
Anesthesia Charges Start Date/Time Anesthesia Start Date: 11/09/24 Anesthesia Start Time: 11:19 Stop Date/Time Anesthesia Stop Date: 11/09/24 Anesthesia Stop Time: 11:56 Coding CPT Codes CPT Codes: ANESTH VAGINAL PROCEDURES - 65869 ([id number]) P1 - NORMAL HEALTHY PATIENT, QK - TOOLING SUPERVISOR 2-4 CNCRNT ANES PROC, QX - TELEVISION ANALYZER SVPhan W/ MED DIRECTION
--- NOTE | 2024-11-09 11:10 | W.ANESCHARGE ---
Anesthesia Charges Start Date/Time Anesthesia Start Date: 11/09/24 Anesthesia Start Time: 11:19 Stop Date/Time Anesthesia Stop Date: 11/09/24 Anesthesia Stop Time: 11:56 Coding CPT Codes CPT Codes: ANESTH VAGINAL PROCEDURES - 28745 ([id number]) P1 - NORMAL HEALTHY PATIENT, QK - OVERHEAD IRRIGATOR 2-4 CNCRNT ANES PROC, QX - MILL HAND PLATE MILL SVPhan W/ MED DIRECTION
--- NOTE | 2024-11-09 11:31 | SUR.OPER ---
PATIENT QUESTIONS ANSWERED SATISFACTORILY PREOPERATIVELY. PATIENT BROUGHT TO OR #4 PER CART. Patient positioned supine on OR #4 bed for the induction. Pt. then moved into the lithotomy position for the procedure. Final approval of positioning by surgeon.
[2024-11-09] MEDS: SILVER NITRATE APPLICATOR 1 EACH STICK..EA. 4 EACH TOPICAL (11:44)
[2024-11-09 11:52] VITALS: BP 92/59; PULSE 66; RESP 12; TEMP 36.8; O2SAT 100
[2024-11-09 12:00] VITALS: BP 83/50; PULSE 71; RESP 12; O2SAT 98
--- NOTE | 2024-11-09 12:06 | P.ANES_ITS ---
Anesthesia Charges Start Date/Time Anesthesia Start Date: 11/09/24 Anesthesia Start Time: 11:19 Stop Date/Time Anesthesia Stop Date: 11/09/24 Anesthesia Stop Time: 11:56 Coding CPT Codes CPT Codes: ANESTH VAGINAL PROCEDURES - 86204 ([id number]) P1 - NORMAL HEALTHY PATIENT, QK - BLACKSMITH APPRENTICE 2-4 CNCRNT ANES PROC, QX - SHOW JUMPING INSTRUCTOR SVPhan W/ MED DIRECTION
--- NOTE | 2024-11-09 12:06 | W.ANESCHARGE ---
Anesthesia Charges Start Date/Time Anesthesia Start Date: 11/09/24 Anesthesia Start Time: 11:19 Stop Date/Time Anesthesia Stop Date: 11/09/24 Anesthesia Stop Time: 11:56 Coding CPT Codes CPT Codes: ANESTH VAGINAL PROCEDURES - 21335 ([id number]) P1 - NORMAL HEALTHY PATIENT, QK - VICE PRESIDENT OF BRAND MANAGEMENT 2-4 CNCRNT ANES PROC, QX - LIFE SKILLS TEACHER SVPhan W/ MED DIRECTION
[2024-11-09 12:15] VITALS: BP 89/53; PULSE 71; RESP 12; O2SAT 98
--- NOTE | 2024-11-09 12:23 | SUR.PHASEII ---
When patient arrived to phase II, initial sats were 43% and patient was visibly obstructing. 10L oxygen via mask was applied and sats returned to normal levels. Anesthesia at bedside during this episode.
[2024-11-09 12:30] VITALS: BP 98/61; PULSE 93; RESP 16; O2SAT 100
[2024-11-09 12:45] VITALS: BP 110/74; PULSE 72; RESP 16; O2SAT 99
[2024-11-09 13:30] LABS: Bacterial Vaginosis* Negative (Negative); Candida glab/krus NOT DETECTED (No Detected); Candida species NOT DETECTED (No Detected); Trichomonas vaginalis NOT DETECTED (No Detected)
--- NOTE | 2024-11-09 13:59 | P.GYNPRC_ITS ---
Procedure Note Time Seen by Provider: 11:00 Date of procedure: 11/09/24 Will [facility] bill your pro fee for this procedure?: Yes Pre-op diagnosis: 1. Overdue for Pap smear 2. Vaginismus Post-op diagnosis: Same Procedure: 1. Exam under anesthesia 2. Pap smear 3. Vaginitis panel Anesthesia: MAC Complications: None Surgeon: Justina Burton MD Disposition: same day Procedure Description: Preoperative diagnosis: Natasha is a 44-year-old who desires permanent sterilization. Postoperative diagnosis: Same. Procedure: Laparoscopic bilateral salpingectomy Anesthesia: General endotracheal, Local Surgeon: Justina Burton MD EBL: <5 mL Exam under anesthesia: Patient placed to dorsal lithotomy. Pelvic exam: Mons normal, clitoris normal, urethral meatus normal. Labia minora and majora normal in appearance bilaterally. Perineum and anus normal appearance. Vaginal introitus normal appearance. Small Herndon used as speculum. Vaginal pink and well rugated with increased white discharge. Vaginitis panel obtained. Cervix pink and without lesion. Bimanual exam performed with 1 digit which revealed uterus to be small, soft, mobile, anteverted, of normal texture. No palpable adnexal masses. Pap smear performed. Small amount of bleeding noted at posterior apex of the hymenal ring. Hemostasis easily achieved with silver nitrate. The patient tolerated this procedure well. Sponge, lap and instrument counts were correct x2 at the end of the procedure and the patient was taken to the recovery area in stable condition. Debrief performed and specimen reviewed. 1. Pap smear with HPV 2. Vaginitis sample
--- NOTE | 2024-11-09 13:59 | W.PM.H&PU ---
History & Physical Update History & Physical Update H&P Reviewed and patient assessed: No changes noted
== END 2024-11-09 12:58 | disposition home or self-care (01) ==
PROVIDERS: Anesthesiology; PCP Student in an Organized Health Care Education/Training Program; Visit Provider Obstetrics & Gynecology
PROC: (CPT 57410; principal; 2024-11-09 10:30)
DX: Z01.419 Encounter for gynecological examination (general) (routine) without abnormal findings (principal); Z11.51 Encounter for screening for human papillomavirus (HPV); N94.2 Vaginismus; Z62.810 Personal history of physical and sexual abuse in childhood
CPT/HCPCS: 57410; 00940; 81025; 81513; 87481; 87624; 87625; 87661; 88141; 88142; A9270; J1885; J2250; J2405; J2704; J3010; J7120

== ENCOUNTER 2024-12-19 09:02 | Outpatient (CLI) | payer MEDICARE, MEDICAID, SELFPAY ==
--- NOTE | 2024-12-19 09:15 | CRLHL7_ITS ---
For Patients: As a result of the Century Cures Act, medical imaging exams and procedure reports are released immediately into your electronic medical record. You may view this report before your referring provider. If you have questions, please contact your health care provider. Indication: Follow-up abnormal brain MRI, MS. Technique: Noncontrast sagittal T1, sagittal FLAIR, axial FLAIR, axial T2 FSE, and axial diffusion weighted images are supplemented with postcontrast axial and coronal T1 weighted images after administration of 10 mL Dotarem intravenous contrast. Comparison: MRI brain 12/21/2023, 01/13/2023 Findings: The ventricles, sulci and gyri are normal size, shape and contour for age. The midline structures are centrally located with no evidence of shift. There are no suspicious intra or extra-axial fluid collections. No region of restricted diffusion or suspicious regions of abnormal parenchymal enhancement. Fine serpiginous enhancement at the right posterior basal ganglia is stable and presumably vascular. Major intracranial arterial flow voids are preserved. Stable mild scattered foci of increased T2 signal throughout the supratentorial white matter including the callosal genu. No new white matter lesions identified. No abnormal postcontrast enhancement. No significant T1 hypointense lesion load. Impression: 1. Stable mild supratentorial white matter lesions, nonspecific, but compatible with chronic demyelinating plaques in setting of multiple sclerosis. 2. No new white matter lesions or abnormal enhancement identified relative to 12/21/2023. 3. No significant T1 hypointense lesion load. No significant cerebral atrophy. Dictated by Oumou Guevara MD @ 12/19/2024 2:00:12 PM (Electronically Signed)
== END 2024-12-19 09:03 | disposition home or self-care (01) ==
LOC: MRI 09:05
PROVIDERS: PCP Student in an Organized Health Care Education/Training Program; Visit Provider Psychiatry & Neurology Neurology
DX: R93.89 Abnormal findings on diagnostic imaging of other specified body structures (principal); G93.9 Disorder of brain, unspecified
CPT/HCPCS: 70553; A9575